=== PATIENT | female | born 1950 | race Caucasian/White ===

== ENCOUNTER 2019-06-27 09:30 | Day surgery (SDC) | payer OTHER ==
[2019-06-25 13:32] LABS: MCH 31.5 pg (26.0-34.0); MCHC 33.9 g/dL (28.0-37.0); RBC 5.7 mil/uL (4.20-5.00); WBC 9.6 thou/uL (4.0-11.0)
[2019-06-25 13:43] LABS: CALCIUM 9.2 mg/dL (8.5-10.1); CREATININE 0.8 mg/dL (0.6-1.0)
[~2019-06-27] VITALS: Ht 175.3 cm; Wt 91.6 kg
[~2019-06-27 09:30] MED LIST: ASA81BEC PO; CALCIUM + VITA1 EACH PO; ENALAPRIL MALEA20 MG PO; HYDROCHLOROTHIA25 M2 PO; LORCET 5-325 M1 EACH PO; METFORMIN HCL500 M3 PO; METFORMIN HCL500 MG PO; MULTI VITAMIN1 EACH PO; PLAVIX 75 MG TA75 MG PO; SIMVASTATIN40 MG PO; TOPROL XL100 MG PO
[2019-06-27 10:10] LABS: APTT 29.5 Seconds (24.5-32.8); PROTIME 10.4 Seconds (9.3-11.4)
[2019-06-27 10:15] VITALS: BP 170/84
--- NOTE | 2019-06-28 07:51 | EKG ---
[facility] [place] [address] ELECTROCARDIOGRAM REPORT Name: RAJESH MURRY Room #: [address] [place] [address]..#: [id number] Admission: 06/27/19 Attend Phys: Mika Doran DPM Discharge: Date of : 46 Report #: [id number] THIS REPORT FOR: cc: FAM - Family physician unknown FAM - Family physician unknown Marco Brady MD [facility] THIS REPORT FOR: //name// [facility] Test Date: 2019-06-27 Test Time: 10:14:31 Pat Name: RAJESH MURRY Department: Room: [facility] Gender: F Green House Manager: pavel : 1950 Requested By: Mika Doran Order Number: [id number] MD: Marco Brady Measurements Intervals [place] Rate: 61 P: 59 FL: 196 QRS: 108 QRSD: 112 T: QT: 455 QTc: 459 Interpretive Statements Sinus rhythm Poor R wave progression Nonspecific T abnormalities, lateral leads No previous ECG available for comparison Electronically Signed On 06-28-2019 7:49:45 CDT by Marco Brady [email or web address] <ELECTRONICALLY SIGNED> By: Marco Brady MD, [facility] 06/28/19 0749 1014 1014 Marco Brady MD, [facility] /EPI
--- NOTE | 2019-07-06 16:07 | PATH ---
[facility] [address] [place] [address] PATHOLOGY RPT PROCEDURE Name: MEGHAN HERBERT Room #: DEP [facility] M.R.#: [id number] Admission: 06/27/19 Date of : 46 Discharge: 06/27/19 Report #: [id number] Path Case #: [id number] [facility] Accession Number: [id number] No. of containers..01 Tissue . 01 Material submitted: . toe - LEFT GREAT TOE BONE AND SOFT TISSUE. Modifiers: left . 01 Clinical history: . Acute osteomyelitis, left ankle and foot; cellulitis of left toe . 02 Diagnosis: Bone and soft tissue, left great toe, debridement: - Fragments of bone associated with marked acute inflammation, consistent with acute osteomyelitis. - Fragments of skin and subcutaneous tissue showing extensive acute inflammation as well as fibrinoid degeneration. (IUV:pit 07/06/2019) QTP 07/06/2019 1218 Local . 02 Electronically signed: . Ria Rosen MD, Pathologist NPI- [id number] . 01 Gross description: . The specimen is received fresh and subsequently placed into formalin after verification of testing, labeled "Meghan Herbert, bone and soft tissue left great toe". Received is an excision of pale montesinos, flaky to sloughing skin with attached small fragments of bone measuring 4.3 x 2.3 x 1.5 cm in greatest dimensions. The surgical margin is inked. The specimen is submitted representatively in cassettes A1 through A3. (CAA; 07/05/2019) QAC/QA 07/05/2019 1042 Local . 02 Pathologist provided ICD-10: M86.172, L08.9 . 02 CPT . 135185 Specimen Comment: A courtesy copy of this report has been sent to [phone] Specimen Comment: Report sent to Performed at: [address] [id number] MD Darshan Bello MD Phone: [phone] Performed at: [address] [address] PATHOLOGY RPT PROCEDURE Name: MEGHAN HERBERT Room #: DEP [facility] M.Karsten#: [id number] Admission: 06/27/19 Date of : 46 Discharge: 06/27/19 Report #: [id number] Path Case #: [id number] [address] [facility], [place], [place] [id number] MD Ria Rosen MD Phone: [phone]
== END 2019-06-27 13:50 | disposition home or self-care (01) ==
LOC: OR 09:30 → TBA 09:36 → OR 13:42
PROVIDERS: Podiatrist Foot & Ankle Surgery
DX: M86.172 Other acute osteomyelitis, left ankle and foot (principal); M79.675 Pain in left toe(s); L08.9 Local infection of the skin and subcutaneous tissue, unspecified; I10 Essential (primary) hypertension; E78.5 Hyperlipidemia, unspecified; I25.2 Old myocardial infarction; Z98.890 Other specified postprocedural states; Z87.891 Personal history of nicotine dependence; Z86.73 Personal history of transient ischemic attack (TIA), and cerebral infarction without residual deficits; Z79.899 Other long term (current) drug therapy
CPT/HCPCS: 50010; 50101; 50386; 50951; 56526; 56527; 57091; 57178; 62110; 62850; 70005

== ENCOUNTER → 2019-07-18 | Outpatient (CLI) | payer OTHER ==
[~2019-07-18] MED LIST changes: +CIPRO500 M1 PO; +COLACE100 MG PO; +ENOXAPARIN100 MG/11 SUBQ; +PEPCID20 MG PO
== END ==
LOC: SJCVCIMAG 13:48
PROVIDERS: ATTEND Podiatrist Foot & Ankle Surgery
DX: I73.9 Peripheral vascular disease, unspecified (principal); I25.10 Atherosclerotic heart disease of native coronary artery without angina pectoris; I10 Essential (primary) hypertension; E78.00 Pure hypercholesterolemia, unspecified; E11.9 Type 2 diabetes mellitus without complications

== ENCOUNTER 2019-07-25 10:26 | Outpatient (CLI) | payer OTHER ==
[2019-07-25] VITALS (12 sets, daily range): BP systolic 128–175; BP diastolic 59–86
[~2019-07-25] VITALS: Ht 175.3 cm; Wt 90.7 kg
--- NOTE | ~2019-07-25 | HC ---
[facility] [place] [address] CONSULTATION Name: RAJESH MURRY Room #: 212-P [facility] JAYLIN Velasco#: [id number] Admission: 07/25/19 Attend Phys: Pierce Coughlin MD Discharge: Date of : 46 Report #: [id number] THIS REPORT FOR: cc: AYE - Family physician unknown FAM - Family physician unknown Juwan Doherty MD ~ CC: Pierce GRIFFITHS unknown DATE OF SERVICE: 07/26/2019 We were asked by Dr. Coughlin to see the patient. HISTORY OF PRESENT ILLNESS: The patient is a 68-year-old with lower extremity arterial occlusive disease. The patient presents with a nonhealing left great toe. The patient had a toenail removed in April by her foot doctor and this has not healed, in fact there is some evidence of infection and it has not resolved with local measures. Arteriography was done today that shows atherosclerotic plaque in the femoral bifurcation along with popliteal artery occlusive disease on the left. Reconstitution is only through a peroneal artery. PAST MEDICAL HISTORY: Significant for diabetes mellitus, hypertension, and hyperlipidemia. The patient is a longtime smoker who quit in 2001 when she had a heart problem. CURRENT MEDICATIONS: At home includes aspirin, calcium, Plavix, Vasotec, gabapentin, hydrochlorothiazide, metformin, metoprolol, vitamins, Zocor. ALLERGIES: CLAIMS TO HAVE A GI INTOLERANCE TO MORPHINE. FAMILY HISTORY: Not contributory. SOCIAL HISTORY: As mentioned, former smoker. REVIEW OF SYSTEMS: GENERAL: Denies weight change, fever. EYES: Denies vision change. Wears glasses. ENT: Denies hearing loss, sinus problems. CARDIAC: Denies angina or palpitations. RESPIRATORY: Denies cough or shortness of breath. GASTROINTESTINAL: Denies nausea, vomiting, blood in stools. GENITOURINARY: Denies urgency, frequency, blood in urine. MUSCULOSKELETAL: The patient states that she has bilateral calf claudication prior to the nonhealing. [facility] [address] [place] [address] CONSULTATION Name: RAJESH MURRY Room #: 212-[facility]#: [id number] Admission: 07/25/19 Attend Phys: Pierce Coughlin MD Discharge: Date of : 46 Report #: [id number] SKIN: Denies rash or infection other than the cellulitis related to the nonhealing of the left great toe. ENDOCRINE: Denies palpitations or tremor or goiter. NEUROLOGIC: Denies motor or sensory dysfunction. HEMATOLOGIC: Denies bleeding or anemia. PHYSICAL EXAMINATION: CONSTITUTIONAL: The patient is sitting in bed, awake, seems comfortable. VITAL SIGNS: Temperature 36.3, pulse rate 64, respiratory rate 20, blood pressure 155/80, O2 sat 95 on room air. HEENT: No scleral icterus, no arcus. NECK: No mass, no bruit. CHEST: Clear to auscultation. HEART: Rhythm regular. ABDOMEN: Soft. EXTREMITIES: I do not feel femoral, popliteal or dorsalis pedis or posterior tibial pulses. Left foot is wrapped due to the cellulitis. ASSESSMENT: The patient has limb threatening left lower extremity arterial occlusive disease. I have discussed a left femoral to peroneal artery bypass with saphenous vein. Risks and details, the options and alternatives, were reviewed. The patient understands all of this and will reflect. We have taken the liberty of obtaining a vein scan prior to surgery if the patient wishes to proceed with that approach. Thank you for the consult. By: 1523 1629 Juwan Doherty MD /nt
[~2019-07-25 10:26] MED LIST changes: -CIPRO500 M1 PO; -COLACE100 MG PO; -ENOXAPARIN100 MG/11 SUBQ; -PEPCID20 MG PO
[2019-07-25 12:04] LABS: MCH 31.5 pg (26.0-34.0); MCV 92.4 fL (80.0-100.0); RBC 5.73 mil/uL (4.20-5.00); WBC 7.7 thou/uL (4.0-11.0)
[2019-07-25 12:35] LABS: CALCIUM 8.9 mg/dL (8.5-10.1); CREATININE 0.7 mg/dL (0.6-1.0); POTASSIUM 3.7 mmol/L (3.5-5.1)
--- NOTE | 2019-07-25 17:52 | NUR ---
PT CARE ASSUMED APPROX 0720. ASSESSMENT CHARTED. PT DENIES PAIN AND SOA. VSS. ORDERED BEDREST AT THIS TIME. IVF INITIATED. RIGHT GROIN POST CATH SITE C/D/I. PT HAS SURGICAL DSG TO LEFT FOOT. DSG C/D/I. NO DISTRESS NOTED.
[2019-07-26 00:40] VITALS: BP 175/76
[2019-07-26 04:53] VITALS: BP 153/81
[2019-07-26 04:54] VITALS: BP 153/81
--- NOTE | 2019-07-26 05:49 | NUR ---
ASSUMED CARE OF PATIENT AT 1900. PATIENT IMMOBILE UNTIL 2014. RIGHT GROIN REMAINED SOFT AND PATIENT DENIED ANY PAIN. NO OOZING AT INCISION NOTED. PATIENT WAS AMBULATED TO RESTROOM. GAIT A BIT UNSTEADY DUE TO RECENT AMPUTATION OF LEFT BIG TOE. PATIENT DOES CALL APPROPRIATELY. PATIENT APPEARS TO BE PROGRESSING WELL TOWARDS GOALS.
[2019-07-26 05:58] LABS: HEMATOCRIT 51.1 % (37.0-47.0); HEMOGLOBIN 17.1 gm/dL (12.0-15.0); MCH 31.1 pg (26.0-34.0); MCHC 33.5 g/dL (28.0-37.0); MCV 92.8 fL (80.0-100.0); RBC 5.5 mil/uL (4.20-5.00); RDW 12.9 % (10.5-14.5); WBC 7.1 thou/uL (4.0-11.0)
[2019-07-26 06:46] LABS: ALBUMIN 3.2 g/dL (3.4-5.0); ANION GAP 11 mmol/L (7-16); BUN 7 mg/dL (7-18); CALCIUM 8.3 mg/dL (8.5-10.1); CHLORIDE 99 mmol/L (98-107); CO2 24 mmol/L (21-32); CREATININE 0.6 mg/dL (0.6-1.0); GLUCOSE 95 mg/dL (74-106); POTASSIUM 3.6 mmol/L (3.5-5.1); SGOT 30 U/L (15-37); SGPT 13 U/L (30-65); SODIUM 134 mmol/L (136-145); TOTAL BILIRUBIN 0.5 mg/dL (0.2-1.0); TOTAL PROTEIN 6.5 g/dL (6.4-8.2); TROPONIN-I <0.06 ng/mL (<0.06)
[2019-07-26 07:00] VITALS: BP 155/80
--- NOTE | 2019-07-26 08:31 | EKG ---
[facility] [place] [address] ELECTROCARDIOGRAM REPORT Name: RAJESH MURRY Room #: 212-P [facility]#: [id number] Admission: 07/25/19 Attend Phys: Pierce Coughlin MD Discharge: Date of : 46 Report #: [id number] THIS REPORT FOR: cc: FAM - Family physician unknown FAM - Family physician unknown Marco Brady MD [facility] THIS REPORT FOR: //name// [facility] Test Date: 2019-07-25 Test Time: 11:30:54 Pat Name: RAJESH MURRY Department: Room: Gender: Novelty Twister Operator: Veronica PENDLETON : 1950 Requested By: Pierce Coughlin Order Number: [id number] MD: Marco Brady Measurements Intervals [place] Rate: 59 P: 66 CA: 189 QRS: 102 QRSD: 110 T: -32 QT: 452 QTc: 448 Interpretive Statements Sinus rhythm with occasional premature ventricular complexes Right axis deviation Poor R wave progression Borderline T abnormalities, inferior leads Compared to ECG 06/27/2019 10:14:31 Premature ventricular complexes are now present Electronically Signed On 07-26-2019 8:29:20 CDT by Marco Brady [email or web address] <ELECTRONICALLY SIGNED> By: Marco Brady MD, [facility] 07/26/19 0829 1130 1130 Marco Brady MD, FAC /EPI
--- NOTE | 2019-07-26 08:44 | EKG ---
[facility] [place] [address] ELECTROCARDIOGRAM REPORT Name: RAJESH MURRY Room #: 212-P [facility]#: [id number] Admission: 07/25/19 Attend Phys: Pierce Coughlin MD Discharge: Date of : 46 Report #: [id number] THIS REPORT FOR: cc: FAM - Family physician unknown FAM - Family physician unknown Marco Brady MD [facility] THIS REPORT FOR: //name// [facility] Test Date: 2019-07-25 Test Time: 17:47:38 Pat Name: RAJESH MURRY Department: Room: Gender: Civil Engineer: Sarah MYERS : 1950 Requested By: Alex Rivera Order Number: [id number] MD: Marco Brady Measurements Intervals [place] Rate: 53 P: 65 OR: 205 QRS: 99 QRSD: 107 T: -45 QT: 459 QTc: 431 Interpretive Statements Sinus rhythm Right axis deviation Probable anteroseptal infarct, old Nonspecific T abnormalities, inferior leads Compared to ECG 06/27/2019 10:14:31 Ventricular premature complex(es) no longer present Electronically Signed On 07-26-2019 8:42:06 CDT by Marco Brady [email or web address] <ELECTRONICALLY SIGNED> By: Marco Brady MD, [facility] 07/26/19 0842 1747 1747 Marco Brady MD, FAC /EPI
--- NOTE | 2019-07-26 08:54 | EKG ---
[facility] [place] [address] ELECTROCARDIOGRAM REPORT Name: RAJESH MURRY Room #: 212-[facility]..#: [id number] Admission: 07/25/19 Attend Phys: Pierce Coughlin MD Discharge: Date of : 46 Report #: [id number] THIS REPORT FOR: cc: FAM - Family physician unknown FAM - Family physician unknown Marco Brady MD [facility] THIS REPORT FOR: //name// [facility] Test Date: 2019-07-26 Test Time: 07:32:17 Pat Name: RAJESH MURRY Department: Room: [facility] Gender: F Cane Flume Watchman: [facility] : 1950 Requested By: Alex Rivera Order Number: [id number] MD: Marco Brady Measurements Intervals [place] Rate: 68 P: 59 OR: 185 QRS: 105 QRSD: 111 T: -43 QT: 406 QTc: 432 Interpretive Statements Sinus rhythm Right axis deviation Anteroseptal infarct, old Borderline T abnormalities, inferior leads Compared to ECG 06/27/2019 10:14:31 No significant change was found Electronically Signed On 07-26-2019 8:51:54 CDT by Marco Brady [email or web address] <ELECTRONICALLY SIGNED> By: Marco Brady MD, [facility] 07/26/19 0851 0732 Marco Brady MD, [facility] /EPI
--- NOTE | 2019-07-26 10:03 | H ---
[facility] [place] [address] HISTORY AND PHYSICAL Name: RAJESH MURRY Room #: 212-P [facility] JAYLIN VelascoNorma#: [id number] Admission: 07/25/19 Attend Phys: Pierce Coughlin MD Discharge: Date of : 46 Report #: [id number] THIS REPORT FOR: cc: AYE - Family physician unknown FAM - Family physician unknown lAex Rivera MD [facility] ~ CC: Pierce GRIFFITHS unknown DATE OF SERVICE: 07/25/2019 HISTORY OF PRESENT ILLNESS: A 68-year-old female, I have asked to see by Dr. Coughlin. We will intervene into her iliac system. She has a history of documented coronary artery disease, has been lost to follow, I have never seen her. She had right coronary artery stents placed early in in [place]. There is a limited infarct at that time. We do not have any much in the way of those records. Longstanding hypertension, diabetes, hypercholesterolemia. Some question of some recurrent anginal type symptoms. Dr. Coughlin was going to intervene into her iliac stenosis. She has been compliant with her medications. They have been on aspirin, calcium, Plavix, enalapril, HydroDIURIL, metformin which has been held, Toprol 100, simvastatin 40. PAST MEDICAL HISTORY: Positive for coronary artery disease with stent, limited inferior infarct, peripheral vascular disease, hypertension, hypercholesterolemia, diabetes, DJD, cataract, gallbladder surgery. SOCIAL HISTORY: Former smoker, lives independently. No current alcohol. She does accompanied by her son. No illicit drug use. FAMILY HISTORY: Positive for premature coronary artery disease. ALLERGIES: MORPHINE. REVIEW OF SYSTEMS: Essentially negative except for stated as above, some progressive dyspnea, also some claudication issues. PHYSICAL EXAMINATION: GENERAL: Pleasant, alert. VITAL SIGNS: Blood pressure is 130/74, pulse 50s to 60s and regular. HEENT: Eyes reveal xanthelasmas. Pharynx is clear. NECK: Shows preserved upstrokes without JVD or bruits. LUNGS: Clear with slight prolonged stay phase. CARDIOVASCULAR: Regular rate and rhythm, S1 and S2 distant. ABDOMEN: Soft. No HSM or abdominal bruit. EXTREMITIES: Reveal diminished pulses. NEUROLOGIC: Nonfocal. [facility] [address] [place] [address] HISTORY AND PHYSICAL Name: RAJESH MURRY Room #: 212-P [facility].#: [id number] Admission: 07/25/19 Attend Phys: Pierce Coughlin MD Discharge: Date of : 46 Report #: [id number] SKIN: Warm and dry without xanthoma or ulcer, mild venous stasis. MUSCULOSKELETAL: Generalized arthritic changes. ASSESSMENT: 1. Coronary artery disease with prior inferior infarct and right coronary stents with ____ recurrent anginal equivalent. 2. Mild ischemic cardiomyopathy. 3. Peripheral vascular disease with bilateral iliac interventions, see Dr. Coughlin's dictation. 4. Hypertension. 5. Hypercholesterolemia. 6. Diabetes. RECOMMENDATIONS AND PLAN: We will proceed with cardiac catheterization to delineate the anatomy and intervention as indicated. Risks, benefits, and alternatives were discussed. Thank you for asking me to assist in the care of this patient. <ELECTRONICALLY SIGNED> By: Alex Rivera MD, FACC 07/26/19 1003 1619 1634 Alex Rivera MD, FACC /nt
[2019-07-26 11:18] VITALS: BP 155/80
[2019-07-26 15:36] VITALS: BP 166/64
--- NOTE | 2019-07-26 17:04 | NUR ---
ASSUMED CARE AT SHIFT CHANGE, ALERT, ORIENTED AND PLEASANT. DENIES ANY CP OR DISCOMFORT. US COMPLETED PER ORDERS. DISCHARGE AND MEDICATIONS INSTRUCTIONS GIVEN TO PATIENT.
--- NOTE | 2019-07-27 11:28 | CATHLAB ---
[facility] [place] [address] INVASIVE PROCEDURE REPORT Name: RAJESH MURRY Room #: DEP [facility] [place]#: [id number] Admission: 07/25/19 Attend Phys: Pierce Coughlin MD Discharge: 07/26/19 Date of : 46 Report #: [id number] THIS REPORT FOR: cc: FAM - Family physician unknown FAM - Family physician unknown Alex Rivera MD [facility] ~ APPROVED REPORT Study performed: 07/25/2019 15:09:22 Patient Details Patient Status: Out-Patient Room #: The patient is a 68 year-old female Event Personnel Alex Rivera Analytics Leader, Edith Muñoz RN, Emmy Monahan, Gary Lopez RTR Monitor Procedures Performed Left Heart CatheterizationPTCA Single Vessel RCA [id number] PCISINGLE Art Access - R femoral artery* 11745 Initial Mod Sed Same Phys/QHP Gr5y [id number] 94011 Mod Sed Same Phys/QHP Ea 095356 Hemostasis w/ Mynx Procedure Narrative The patient was brought electively to the Cardiac Catheterization Laboratory and was prepped and draped in a sterile manner. A SHEATH BRITE-TIP 6F X 11CM ([id number]) sheath was inserted into the RFA^. Coronary angiography was performed using coronary diagnostic catheters. The right coronary system was accessed and visualized with a JR4 catheter. The left coronary system was accessed and visualized with a JL4 catheter. The left ventricle was accessed and visualized with a PIGTAIL catheter. Closure device was deployed with a Fr MYNXGRIP 6/7F #[id number]. The patient tolerated the procedure well and there were no complications associated with the procedure. There was no hematoma. This was a combo case with Dr. Coughlin. Dr. Rivera used 160ml of Omnipaque 350 for his part of the exam. Intraoperative Conscious Sedation Sedation start time: 15:50 Case end Time: Fentanyl 300 mcg Versed 4.0 mg Fluoro Time: 19.70 minutes Dose: DAP 70263.20 cGycm2 3447 mGy [facility] [address] [place] [address] INVASIVE PROCEDURE REPORT Name: JUAQUIN MURRYE Albert [id number] Admission: 07/25/19 Attend Phys: Pierce Coughlin, Discharge: 07/26/19 Date of : 46 Report #: [id number] Contrast Type and Amount: Visipaque 118 ml Hemodynamics The aortic pressure is 141/67 mmHg with a mean of mmHg. The left ventricular pressure is 146/11 mmHg with a mean of mmHg. The left ventricular end diastolic pressure is 25 mmHg. PCI Technique Lesion Percutaneous coronary intervention was performed on the right coronary artery. A LAUNCHER 6FR [facility] #[id number] Guide Catheter was used to engage the ostium. A Luge Wire .014 x 182CM #[id number] Interventional Guidewire was used to cross the lesion. BALLOON DILATION A Balloon catheter Sprinter OTW 2.5 x 12 #[id number] was inserted and inflated up to 16atm for 25seconds. Additional Inflation: 18atm for 23seconds. Additional Inflation: 18atm for 22seconds. STENT DEPLOYMENT No stent was deployed in the RCA. POST STENT DEPLOYMENT BALLOON DILATION A Balloon catheter TREK NC OTW 3.5 X 15 #[id number] was inserted and inflated up to 20atm for 35seconds. Additional Inflation: 20atm for 36seconds. PCI Technique Lesion 2 Percutaneous Coronary Intervention was performed on the External iliac. PCI Technique Lesion 3 Percutaneous Coronary Intervention was performed on the mid right coronary artery. Conclusion 1 successful PTCA of a focal in-stent restenosis in the distal one third of a large dominant vessel. 99% to 0%. Redilate with a 3.5 noncompliant high-pressure balloon. #2 left main free of disease calcification is noted giving rise to LAD and circumflex. #3 LAD is mild to moderate diffusely diseased in the mid vessel at the diagonal bifurcation. And then a diffusely diseased small attenuated vessel at the apex. No indication for intervention. #4 circumflex OM proximal calcification mild disease 1 large OM widely patent. This is a non-dominant vessel. #5 normal left jugular size and inferior basilar segment is [address] [address] INVASIVE PROCEDURE REPORT Name: RAJESH MURRY Room #: [facility] [place]#: [id number] Admission: 07/25/19 Attend Phys: Pierce Coughlin, Discharge: 07/26/19 Date of : 46 Report #: [id number] hypokinetic if he overall EF is near normal in the 50% range. Recommendations and plan: Continue aggressive risk factor modification. Continue dual antiplatelet therapy which could be interrupted for peripheral bypass surgery. No new stent was placed. This was re-dilatation of a focal in-stent restenosis. Transferred to CCU stable. <ELECTRONICALLY SIGNED> By: Alex Rivera MD, FACC 07/27/19 1126 1126 1126 Alex Rivera MD, FACC /INF
--- NOTE | 2019-07-27 16:20 | HC ---
[facility] [place] [address] CONSULTATION Name: RAJESH MURRY Room #: DEP JAYLIN Valencia#: [id number] Admission: 07/25/19 Attend Phys: Pierce Coughlin MD Discharge: 07/26/19 Date of : 46 Report #: [id number] THIS REPORT FOR: cc: AYE - Family physician unknown AYE - Family physician unknown Yfn Encarnacion MD ~ CC: Pierce GRIFFITHS unknown DATE OF SERVICE: 07/26/2019 CHIEF COMPLAINT: Great toe ulceration. HISTORY OF PRESENT ILLNESS: This is a 68-year-old female patient who has a history of coronary artery disease and peripheral vascular disease, who was noted to have an ulceration of her great toe. She is status post amputation of the distal portion of the toe. The patient is followed by Podiatry and was seen by Dr. Coughlin. She underwent coronary angiography as well as an aortogram with runoffs. She was noted to have bilateral iliac stenoses and was treated with stent placement across areas of high-grade stenosis into external iliac artery and right external iliac artery. She also had critical high-grade stenosis of the left common femoral artery and multiple left SFA stenoses, left popliteal artery occlusion and occlusion of left anterior and posterior tibial arteries. These areas were not amenable to percutaneous intervention and she is being referred to Dr. Doherty for evaluation of cardiovascular surgery. I was asked to see her with regard to wound care while here in the hospital. The patient denies pain associated with the toe. States that she has been applying Betadine over the areas of Steri-Strips that were placed by her lap checker. PAST MEDICAL HISTORY: Positive for coronary artery disease, peripheral vascular disease, type 2 diabetes mellitus, hyperlipidemia, and hypertension. MEDICATIONS: Enalapril, aspirin, simvastatin, hydrochlorothiazide, Plavix, metoprolol, metformin, hydrocodone. ALLERGIES: MORPHINE. SOCIAL HISTORY: Negative for alcohol or tobacco use. FAMILY HISTORY: Noncontributory. REVIEW OF SYSTEMS: CONSTITUTIONAL: The patient denies fever, chills, or weight loss. NEUROLOGICAL: The patient denies focal weakness, numbness or tingling. EYES: The patient denies visual changes, redness, or drainage. ENT: The patient denies earache, nasal drainage or sore throat. [address] [address] CONSULTATION Name: RAJESH MURRY Room #: DEP [facility] Annie#: [id number] Admission: 07/25/19 Attend Phys: Pierce Coughlin MD Discharge: 07/26/19 Date of : 46 Report #: [id number] CARDIOVASCULAR: The patient denies chest pain, palpitation or diaphoresis. PULMONARY: The patient denies cough or shortness of breath. GASTROINTESTINAL: The patient denies nausea, vomiting, diarrhea or abdominal pain. ORTHOPEDIC: The patient does note the ulceration and subsequent surgical treatment of the left great toe. Other systems in a 14-point review of systems are negative. PHYSICAL EXAMINATION: VITAL SIGNS: At this time include temperature 36.9, pulse 61, respiratory rate 16, blood pressure 153/81. GENERAL: This is a chronically ill-appearing female patient who appears to be in no distress. HEENT: Head is normocephalic. Nose and throat clear. NECK: Supple. LUNGS: Clear. ABDOMEN: Soft. Bowel sounds present. EXTREMITIES: Lower extremities demonstrate Steri-Strips in place over a distal portion of the left great toe. It appears to have had a surgical debridement and closure, is not infected at this time, is not draining and is not tender. CLINICAL IMPRESSION: 1. Chronic ulceration of the left great toe. 2. Peripheral vascular disease, status post percutaneous intervention in the bilateral external iliac arteries. Additional evaluation with Vascular Surgery would be appropriate. 3. Hypertension. 4. Diabetes mellitus. RECOMMENDATIONS: At this point in time, the patient is scheduled for discharge for later today. I think it would be appropriate to continue with Betadine "paint" to maintain the integrity of the skin and closure of the left great toe. At this point, she is going to be discharged, but she is being followed by Podiatry here in the [facility] and I have recommended that she continue to see her lap checker. We would certainly be available and happy to contribute to her care should there be any questions or desire for additional input; however, I think at present, revascularization and topical Betadine would be appropriate care. I do appreciate being asked to see her in consultation. <ELECTRONICALLY SIGNED> By: Yfn Encarnacion MD 07/27/19 1620 1535 1558 Yfn Encarnacion MD /nt
== END 2019-07-26 17:47 | disposition home or self-care (01) ==
LOC: CATH 10:26 → 2N 17:32 → CATH 07-26 17:47
PROVIDERS: Internal Medicine Cardiovascular Disease; Nuclear Medicine Nuclear Cardiology
DX: I25.10 Atherosclerotic heart disease of native coronary artery without angina pectoris (principal); T82.855A Stenosis of coronary artery stent, initial encounter; I70.213 Atherosclerosis of native arteries of extremities with intermittent claudication, bilateral legs; I70.248 Atherosclerosis of native arteries of left leg with ulceration of other part of lower leg; L97.829 Non-pressure chronic ulcer of other part of left lower leg with unspecified severity; I70.1 Atherosclerosis of renal artery; I10 Essential (primary) hypertension; E11.9 Type 2 diabetes mellitus without complications; E78.5 Hyperlipidemia, unspecified; I25.2 Old myocardial infarction; Z98.890 Other specified postprocedural states; Z79.899 Other long term (current) drug therapy; Z90.710 Acquired absence of both cervix and uterus; Z90.49 Acquired absence of other specified parts of digestive tract; Z98.42 Cataract extraction status, left eye; Z98.41 Cataract extraction status, right eye; Z87.891 Personal history of nicotine dependence; Z01.818 Encounter for other preprocedural examination; Z86.73 Personal history of transient ischemic attack (TIA), and cerebral infarction without residual deficits; Z88.8 Allergy status to other drugs, medicaments and biological substances; Z95.1 Presence of aortocoronary bypass graft
CPT/HCPCS: 10081

== ENCOUNTER 2019-08-14 06:25 | Inpatient (IN) | payer OTHER ==
[2019-08-09 11:01] LABS: URINE BILIRUBIN NEGATIVE (Negative); URINE BLOOD TRACE (Negative); URINE CLARITY CLEAR; URINE COLOR YELLOW; URINE GLUCOSE-RANDOM* NEGATIVE (Negative); URINE KETONES NEGATIVE (Negative); URINE LEUKOCYTES-REFLEX TRACE (Negative); URINE NITRITE-REFLEX NEGATIVE (Negative); URINE PROTEIN (DIPSTICK) NEGATIVE (Negative); URINE UROBILINOGEN 0.2 E.U./dl (0.2-1.0)
[2019-08-09 11:59] LABS: ABSOLUTE NEUTROPHILS 7.5 thou/uL (1.4-8.2); EOSINOPHILS 0.6 % (0.0-3.0); HEMATOCRIT 49.5 % (37.0-47.0); HEMOGLOBIN 16.7 gm/dL (12.0-15.0); MCH 31.3 pg (26.0-34.0); MCHC 33.8 g/dL (28.0-37.0); MCV 92.7 fL (80.0-100.0); MONOCYTES 6.1 % (1.0-8.0); POLYS 76.3 % (36.0-66.0); RBC 5.34 mil/uL (4.20-5.00); RDW 12.9 % (10.5-14.5); WBC 9.9 thou/uL (4.0-11.0)
[2019-08-09 12:08] LABS: INR 1.1; PROTIME 10.8 Seconds (9.3-11.4)
[2019-08-09 12:14] LABS: ALBUMIN 3.5 g/dL (3.4-5.0); CALCIUM 9.2 mg/dL (8.5-10.1); CREATININE 0.8 mg/dL (0.6-1.0); POTASSIUM 4.8 mmol/L (3.5-5.1); TOTAL BILIRUBIN 0.5 mg/dL (0.2-1.0); TOTAL PROTEIN 6.7 g/dL (6.4-8.2)
[2019-08-09 13:11] LABS: PLATELET COUNT 211 thou/uL (150-400)
[~2019-08-14] VITALS: Ht 177.8 cm; Wt 92.2 kg
[~2019-08-14 06:25] MED LIST changes: +CIPRO500 M1 PO
[2019-08-14 06:47] VITALS: BP 112/72
[2019-08-14 16:07] VITALS: BP 82/68
[2019-08-14 16:21] VITALS: BP 99/48
[2019-08-14 16:28] VITALS: BP 95/65
[2019-08-14 19:16] VITALS: BP 113/66
[2019-08-14 20:38] VITALS: BP 95/63
[2019-08-15] VITALS (13 sets, daily range): BP systolic 84–125; BP diastolic 43–65
[2019-08-15 05:46] LABS: HEMATOCRIT 36.6 % (37.0-47.0); MCH 30.5 pg (26.0-34.0); MCHC 32.8 g/dL (28.0-37.0); MCV 92.9 fL (80.0-100.0); RBC 3.93 mil/uL (4.20-5.00); RDW 12.6 % (10.5-14.5); WBC 14.6 thou/uL (4.0-11.0)
[2019-08-15 05:58] LABS: CALCIUM 7.9 mg/dL (8.5-10.1); CREATININE 0.7 mg/dL (0.6-1.0); POTASSIUM 3.6 mmol/L (3.5-5.1)
--- NOTE | 2019-08-15 18:35 | HC ---
[facility] [place] [address] CONSULTATION Name: RAJESH MRURY Room #: 243-P ADM IN M.R.#: [id number] Admission: 08/14/19 Attend Phys: Juwan Doherty MD Discharge: Date of : 46 Report #: [id number] THIS REPORT FOR: cc: EL LAYTON Physician not on staff Yfn Encarnacion MD ~ CC: Juwan LAYTON Physician staff DATE OF SERVICE: 08/15/2019 CHIEF COMPLAINT: Dry gangrene of the left great toe. HISTORY OF PRESENT ILLNESS: This is a 68-year-old female patient with whom I am familiar from recent hospitalization. The patient had a nonhealing ulceration of the great toe significant for peripheral vascular disease. She underwent amputation of the distal portion of the toe in late 06/2019. She is being followed by Podiatry since that time. She was seen by Dr. Coughlin and underwent bilateral stent placement across high-grade stenosis of the external iliac arteries. She has now undergone left femoral to peroneal artery bypass with reversed autogenous greater saphenous vein and a left femoral endarterectomy with vein patch closure. The patient at this time states that her foot feels well. Denies any pain. She is actually quite hopeful that things are going to begin healing. PAST MEDICAL HISTORY: Positive for coronary artery disease, peripheral vascular disease as detailed above, type 2 diabetes mellitus, hyperlipidemia, hypertension, and amputation of the distal portion of the left great toe. MEDICATIONS: Includes acetaminophen, aspirin, atorvastatin, cefazolin, enalapril, famotidine, hydrochlorothiazide, hydrocodone, metoprolol, mupirocin, nicardipine, ondansetron, phenylephrine. FAMILY HISTORY: Noncontributory. SOCIAL HISTORY: Negative for alcohol or tobacco use. REVIEW OF SYSTEMS: CONSTITUTIONAL: The patient denies fever, chills, or weight loss. NEUROLOGICAL: The patient denies focal weakness, numbness or tingling. EYES: The patient denies any visual changes, redness or drainage. ENT: The patient denies earache, nasal drainage, sore throat. CARDIOVASCULAR: The patient denies chest pain or palpitations or diaphoresis. PULMONARY: The patient denies cough or shortness of breath. GASTROINTESTINAL: The patient denies nausea, vomiting, diarrhea or abdominal [address] [address] CONSULTATION Name: RAJESH MURRY Room #: [facility] ..#: [id number] Admission: 08/14/19 Attend Phys: Juwan Doherty MD Discharge: Date of : 46 Report #: [id number] pain. ORTHOPEDIC: The patient notes the ulceration on the surgical closure of her left great toe. Denies pain associated with this. GENITOURINARY: The patient denies frequency or urgency of urination. Denies dysuria. Other systems in a 14-point review of systems are negative. PHYSICAL EXAMINATION: VITAL SIGNS: At this time include temperature 98.3, pulse 64, respiratory rate 13, blood pressure 105/49. GENERAL: This is a well-developed female patient who appears to be in minimal distress. HEENT: Head normocephalic. Nose and throat clear. NECK: Supple. LUNGS: Clear. ABDOMEN: Bowel sounds present. EXTREMITIES: The lower extremities demonstrate the feet are pink, warm and dry. She has normal capillary refill. Left great toe demonstrates a surgical incision with Steri-Strips in place, a little bit of necrosis and some dry stable eschar is present. NEUROLOGIC: The patient is alert, oriented and appropriate. LABORATORY DATA: Includes sodium 135, potassium 3.6, chloride 103, CO2 of 25, BUN 14, creatinine 0.7, glucose of 84. White blood cell count is 14.6, hemoglobin is 12.0, hematocrit 36.6, platelet count 178,000. CLINICAL IMPRESSION: 1. Chronic ulceration of left great toe, status post amputation of the distal portion of the left great toe with primary closure. 2. Peripheral vascular disease, status post percutaneous intervention with bilateral external iliac arteries and status post fem-pop bypass yesterday. 3. Hypertension. 4. Diabetes mellitus. RECOMMENDATIONS: At this point in time, we will recommend topical Betadine and a simple dry gauze dressing to the left great toe. It can be left open to air alternatively if she would prefer due to discomfort with dressings in the past. We will follow carefully. I do not think there is any reason to debride at this time. The approximated portion of the distal toe appears to still remain intact. There is some eschar. I think this should be left dry stable as long as there is no infection. We will take a very conservative approach, the [facility] [address] [place] [address] CONSULTATION Name: RAJESH MURRY Room #: 243-P ADM IN M.R.#: [id number] Admission: 08/14/19 Attend Phys: Juwan Doherty MD Discharge: Date of : 46 Report #: [id number] patient is agreeable to current plan of care. I appreciate having been asked to see her in consultation. <ELECTRONICALLY SIGNED> By: Yfn Encarnacion MD 08/15/19 1835 1014 1250 Yfn Encarnacion MD /nt
[2019-08-16] VITALS (7 sets, daily range): BP systolic 111–133; BP diastolic 52–85
--- NOTE | 2019-08-16 18:06 | PATH ---
[facility] [address] [place] [address] PATHOLOGY RPT PROCEDURE Name: HERBERTMEGHAN S Room #: 212-P [facility] IN M.R.#: [id number] Admission: 08/14/19 Date of : 46 Discharge: Report #: [id number] Path Case #: [id number] L[facility] Accession Number: [id number] . 01 Material submitted: . artery - LEFT FEMORAL PLAQUE. Modifiers: left . 01 Clinical history: . Arterial occlusive disease . 02 Diagnosis: Left femoral plaque, endarterectomy: - Calcific atherosclerotic plaque material. - Focal vessel wall showing myxoid degeneration. (IUV:fur storage clerk; 08/16/2019) MBR 08/16/2019 1325 Local . 02 Electronically signed: . Ria Rosen MD, Pathologist NPI- [id number] . 01 Gross description: . The specimen is received in formalin, labeled "HerbertMeghan, left femoral plaque" and consists of multiple rubbery to calcified segments of montesinos-brown tissue measuring 3.0 x 2.2 x 1.0 cm. Truck Manager sections are submitted in A1 following decalcification. (SDY; 08/15/2019) SYU/SYU 08/15/2019 1549 Local . 02 Pathologist provided ICD-10: I70.202 . 02 CPT . 758279, 126916 Specimen Comment: A courtesy copy of this report has been sent to [phone], [phone] Specimen Comment: [phone] Specimen Comment: Report sent to / DR LAYTON Performed at: [address], [place] [id number] MD Darshan Bello MD Phone: [phone] Performed at: [address] [id number] MD Ria Rosen MD Phone: [phone]
[2019-08-17 00:46] VITALS: BP 135/71
[2019-08-17 04:20] VITALS: BP 164/82
[2019-08-17 08:23] VITALS: BP 159/80
--- NOTE | 2019-08-17 08:59 | O ---
[facility] [place] [address] OPERATIVE REPORT Name: RAJESH MURRY Room #: 212-P ADM IN M.R.#: [id number] Admission: 08/14/19 Attend Phys: Juwan Doherty MD Discharge: Date of : 46 Report #: [id number] THIS REPORT FOR: cc: EL LAYTON Physician not on staff Juwan Doherty MD ~ CC: Juwan LAYTON Physician staff DATE OF SERVICE: 08/14/2019 PREOPERATIVE DIAGNOSIS: Left lower extremity arterial occlusive disease. POSTOPERATIVE DIAGNOSIS: Left lower extremity arterial occlusive disease. OPERATION: Left femoral to peroneal artery bypass with reversed autogenous greater saphenous vein and left femoral endarterectomy with vein patch closure and intraoperative arteriograms. SURGEON: Juwan Doherty MD DRILLER PORTABLE: FLACO Sanabria ANESTHESIA: General. INDICATIONS: The patient is a 68-year-old with a nonhealing lesion of the right great toe, osteomyelitis had set in and distal first toe amputation had not healed since at least April. Arteriography showed intense amount of atherosclerotic disease in the femoral bifurcation. The distal superficial femoral artery and popliteal artery were occluded and the only reconstitution was the peroneal artery. FINDINGS AND TECHNIQUE: After general anesthesia was established, an incision was made in the left groin to expose the left common deep and superficial femoral arteries. This incision was explored medially to expose the central end of the greater saphenous vein. Another incision was made in the medial left calf to expose the superficial femoral vein below the knee. This incision was extended deep and the gastrocnemius was taken down to expose the popliteal artery. The popliteal exposure was extended distally and the soleus was taken down off of its origin on the tibia to expose the tibial arteries. The peroneal artery was found deep in this incision on the medial side of the fibula. This was found to be a relatively soft vessel and thought to be a satisfactory target for our bypass. [facility] [address] [place] [address] OPERATIVE REPORT Name: RAJESH MURRY Room #: 212-P [facility] IN [facility].#: [id number] Admission: 08/14/19 Attend Phys: Juwan Doherty MD Discharge: Date of : 46 Report #: [id number] At this point, the greater saphenous vein was harvested using interrupted incisions and 10,000 units of heparin were given. The reversed saphenous vein was sewn in end-to-side fashion to the popliteal artery. This was brought out through subcutaneous tunnel. The femoral arteries were occluded and a femoral arteriotomy was made. An endarterectomy was performed. There was intense amount of thick calcification along the posterior aspect of the common femoral artery extending into the deep and superficial femoral arteries. This was removed without creating a distal flap. Neointima was inspected and all loose debris was removed. Tacking sutures were placed at the transition zones distally. When the endarterectomy was deemed to be satisfactory, a length of greater saphenous vein was splayed open and a patch closure was made with running Prolene. Prior to finishing the closure, the vessels were backbled and then flow was reestablished. When the greater saphenous vein had been satisfactorily routed through the subcutaneous tunnel and making sure that there were no twists in the conduit, a proximal anastomosis was done with end of the graft to the side of the patch. When the anastomosis was complete, flow was reestablished. Flow was checked both with the flow probe and the Doppler and it was felt to be satisfactory. An intraoperative arteriogram was taken that showed good but slow flow through the conduit. This appeared to be chiefly related to the limited distal flow of a single tibial artery, peroneal of that. When hemostasis was satisfactory, drains were brought through separate stab wounds and placed along the subcutaneous tunnel. Protamine was given to reverse the heparin. The wounds were closed in layers with Vicryl for the subcutaneous layer and Monocryl for the skin in the groin and nylon and clips for the skin in the more distal incisions. The patient was taken to the recovery area in satisfactory condition where a good Doppler signal was audible in the distal peroneal artery. All counts were reported as correct. <ELECTRONICALLY SIGNED> By: Juwan Doherty MD 08/17/19 0859 0849 1011 Juwan Doherty MD /nt
[2019-08-17 11:49] VITALS: BP 125/57
== END 2019-08-17 12:07 | DRG 253 ==
LOC: ICU 06:25 → TBA 06:25 → PRE 09:42 → ICU 16:06 → 2N 08-16 16:28
PROVIDERS: Physician Assistant; ADMIT Surgery Vascular Surgery; ATTEND Surgery Vascular Surgery
PROC: 04UL07Z Supplement Left Femoral Artery with Autologous Tissue Substitute, Open Approach (ICD-10-PCS; principal; 2019-08-14)
PROC: 041 Lower Arteries, Bypass (ICD-10-PCS; principal; 2019-08-14)
PROC: 04CL0ZZ Extirpation of Matter from Left Femoral Artery, Open Approach (ICD-10-PCS; principal; 2019-08-14)
PROC: 06BQ0ZZ Excision of Left Saphenous Vein, Open Approach (ICD-10-PCS; principal; 2019-08-14)
DX: I70.208 Unspecified atherosclerosis of native arteries of extremities, other extremity (principal); E44.1 Mild protein-calorie malnutrition; I25.10 Atherosclerotic heart disease of native coronary artery without angina pectoris; E11.51 Type 2 diabetes mellitus with diabetic peripheral angiopathy without gangrene; E78.5 Hyperlipidemia, unspecified; L97.529 Non-pressure chronic ulcer of other part of left foot with unspecified severity; I10 Essential (primary) hypertension; E78.00 Pure hypercholesterolemia, unspecified; E11.42 Type 2 diabetes mellitus with diabetic polyneuropathy; Z20.828 Contact with and (suspected) exposure to other viral communicable diseases; Z79.899 Other long term (current) drug therapy; Z79.82 Long term (current) use of aspirin; Z89.412 Acquired absence of left great toe; Z88.6 Allergy status to analgesic agent; Z68.29 Body mass index [BMI] 29.0-29.9, adult
CPT/HCPCS: 10078; 10081; 10203; 47375; 48888; 50010; 50101; 50386; 50455; 50643; 50953; 51412; 51481; 52287; 56524; 56526; 56527; 56528; 56531; 56534; 56668; 56760; 57092; 57093; 57167; 57242; 62110; 62900

== ENCOUNTER 2019-08-17 09:33 | Inpatient (IN) | payer OTHER ==
[~2019-08-17] VITALS: Ht 175.3 cm; Wt 100.2 kg
--- NOTE | ~2019-08-17 | PLAN ---
[facility] [place] [address] REHAB UNIT PLAN OF CARE Name: RAJESH MURRY Room #: 513-P ADM IN M.R.#: [id number] Admission: 08/17/19 Attend Phys: Pierce Carrington MD Discharge: Date of : 46 Report #: [id number] THIS REPORT FOR: //name// CC: Pierce LAYTON Physician staff DATE OF SERVICE: 08/20/2019 SUBJECTIVE: The patient is seen back today in followup. She is in no distress. Last recorded temperature 98.1, pulse 80, respirations 18, blood pressure 101/51. The patient is alert. HEENT appeared to be benign. Cranial nerves are grossly intact. Facies are symmetric. Her left lower extremity dressings are in place with the medial and lateral wound VACs with drains. She is working in therapies with transfers, contact guard and gait min assist 15 feet with a front-wheeled walker. In occupational therapy, lower body dressing is dependent. ASSESSMENT: 1. Medical complexity with generalized debilitation. 2. Severe peripheral arterial disease, status post left fem-pop bypass. 3. Recent left great toe wound, status post amputation, 06/27/2019. 4. Peripheral neuropathy. 5. Coronary artery disease. 6. Hypertension. 7. Hyperlipidemia. 8. Diabetes mellitus type 2. 9. Mild protein-calorie malnutrition. PLAN: The overall plan of care is based on the preadmission screen, post-admission physician evaluation and information garnered from therapy assessments. 1. Estimated length of stay is probably 5-10 days. 2. Medical prognosis is reasonably good. 3. Anticipated interventions includes the interdisciplinary acute inpatient rehabilitation program. 4. Anticipated functional outcomes would be for the patient to become modified independent with transfers, mobility and ADLs at least at a walker level, so that she can return back to the home setting. 5. Discharge destination would be back home with her sister. 6. Expected therapy by discipline includes PT and OT 1 and 1-1/2 [place] [address] REHAB UNIT PLAN OF CARE Name: RAJESH MURRY Room #: 513-P [facility] IN [facility].#: [id number] Admission: 08/17/19 Attend Phys: Pierce Carrington MD Discharge: Date of : 46 Report #: [id number] each five days a week throughout the duration of the acute inpatient rehabilitation stay. By: 0921 1010 Pierce Carrington MD /nt
[2019-08-17 12:30] VITALS: BP 112/55
--- NOTE | 2019-08-17 13:30 | NUR ---
chart review. cm intro dcp, transition of care and team meeting. pt new to acute rehab today, bedside in for visit as well. julian reported " live alone, my sister will cm stay with me when dc home and if need hh it will have to be [facility]. have ramp into home and then 1 level for needs. [place] walker. independent, manage own medication and drive vehicle. primary care dr cam bunch."/julian. will cont following as needed for dc needs.
--- NOTE | 2019-08-17 15:58 | NUR ---
PT ARRIVED AT 1200 FROM CCU. VITALS STABLE. C/O LEFT GROIN AND LEFT BIG TOE PAIN. WOUNDVAC ON LLE REMAINS INTACT AND PATENT. EVELYN DRAINS INTACT AND PATENT. DRESSING ON LEFT FELTON AROUND EVELYN DRAIN CHANGED. DRAINAGE REMAINS SEROUSANGUINOUS. PT UP WITH MAX ASSIST OF 1-2 PIVOT TRANSFERS AND TOLERATED WELL. WBAT FOR LLE. IV ON LEFT HAND REMAINS INTACT AND PATENT. Q1H VISUAL CHECKS. CALL LIGHT WITHIN REACH. FALL PRECAUTIONS IN PLACE
[2019-08-17 19:45] VITALS: BP 111/54
--- NOTE | 2019-08-18 00:51 | NUR ---
PT ALERT AND ORIENTED X 4. WOUND VAC TO LEFT LEG C/D/I. NO DRAINAGE IN CANNISTER. LEFT GROIN AND ANKLE EVELYN DRAINS INTACT WITH SEROSANGUINOUS DRAINAGE. BP 111/54 AT HS. BP MEDS HELD. VOIDING LARGE AMTS CLEAR YELLOW URINE. PT DENIES PAIN OR DISCOMFORT. BED ALARM ON FOR SAFETY. PT CHECKED ON HOURLY ROUNDS.
[2019-08-18 06:12] LABS: HEMATOCRIT 34.7 % (37.0-47.0); HEMOGLOBIN 11.7 gm/dL (12.0-15.0); MCH 31.1 pg (26.0-34.0); MCHC 33.8 g/dL (28.0-37.0); RBC 3.77 mil/uL (4.20-5.00); RDW 12.8 % (10.5-14.5); WBC 11.1 thou/uL (4.0-11.0)
[2019-08-18 06:34] LABS: CALCIUM 8.9 mg/dL (8.5-10.1); CREATININE 0.5 mg/dL (0.6-1.0); POTASSIUM 3.6 mmol/L (3.5-5.1)
[2019-08-18 07:50] VITALS: BP 106/66
--- NOTE | 2019-08-18 14:35 | NUR ---
ASSUMED CARES AT 0700. PT AWAKE, ALERT AND ORIENTED*4. C/O LEFT GROIN AND GREAT TOE PAIN, PAIN MEDICATION ADMINISTERED NEEDED. PT C/O NAUSEA AND HAD EMESIS*1 AFTER BREAKFAST, ZOFRAN ORDER RECEIVED BUT PT REFUSED IT AT THIS TIME. PT C/O DIZZINESS, ORTHOSTATIC BP TAKEN SITTING 136/60, STANDING 73/32 AND SYMPTOMATIC (NAUSEA AND DIZZINESS). HOSPITALIST NOTIFIED AND ORDERS RECEIVED. WOUND VAC ON LLE REMAINS INTACT AND PATENT. EVELYN DRAINS ON LEFT GROIN AND LEFT ANKLE REMAIN INTACT AND PATENT, 10CC AND 40CC RESPECTIVELY EMPTIED FROM THE DRAINS. PT WALKED FROM BED TO THE DOOR WITH PHYSICAL THERAPY USING GB AND WALKER AND TOLERATED WELL, VERY HAPPY ABOUT HER ACHIEVEMENT. LEFT BIG TOE CLEANED AND PAINTED WITH BETADINE. Q1H VISUAL CHECKS. CALL LIGHT WITHIN REACH. FALL PRECAUTIONS IN PLACE
[2019-08-18 19:35] VITALS: BP 126/72
[2019-08-18 19:36] VITALS: BP 126/64
[2019-08-18 19:38] VITALS: BP 118/79
--- NOTE | 2019-08-19 00:39 | NUR ---
PT ALERT AND ORIENTED X 4. UP TO BSC WITH ASSIST X 1. WOUND VAC INTACT TO LEFT LEG. EVELYN DRAINS X 2 WITH SANGUINOUS DRAINAGE. PT DENIES PAIN OR DISCOMFORT. NO N/V. BED ALARM ON FOR SAFETY. PT APPEARS TO BE SLEEPING ON HOURLY ROUNDS.
[2019-08-19 05:36] LABS: GLYCOHEMOGLOBIN (HGB A1C) 6.1 % (4.8-5.6)
[2019-08-19 08:00] VITALS: BP 106/59; BP 82/40; BP 93/58
--- NOTE | 2019-08-19 12:23 | NUR ---
ASSUMED CARE AROUND 0700, PT A&O X 4, NO ACUTE DISTRESS NOTED. VSS, O2 ON RA. PT DENIES ANY PAIN, HOWEVER HAD EMESIS X 1 DURING PT (AFTER BREAKFAST). GIVEN PRN ZOFRAN IV WITH ADEQUATE RELIEF. WOUND VAC TO L LEG IN PLACE AND RUNNING, NO DRAINAGE NOTED. DRESSINGS C/D/I. EVELYN DRAINS TO L GROIN AND L ANKLE IN PLACE DRAINING SMALL AMOUNT OF SEROSANGUINEOUS FLUID. IV TO L HAND FLUSHES WELL. MEDS GIVEN PER ORDERS, REFUSED DAILY MIRALAX, HAD SOFT BM THIS AM. CONTINENT OF B&B AND USES BR. PT RESTING IN BED, CALL LIGHT WITHIN REACH, WILL CONTINUE TO MONITOR PER POC.
[2019-08-19 19:20] VITALS: BP 113/68
[2019-08-19 19:21] VITALS: BP 103/58
[2019-08-19 19:23] VITALS: BP 101/51
--- NOTE | 2019-08-20 03:30 | NUR ---
PATIENT ALERT AND ORIENTED X4. UP TO BSC WITH ONE ASSIST AND GAIT BELT. BS MONITORED PER ORDER WELL ORTHOSTATIC B/P. LYING 113/68; SITTING 103/58 AND STANDING 101/51 AT 1923 08/19/19. WOUND VAC OPERATING W/O DIFFICULTY. MONITORING EVELYN'S X2. DRESSINGS D/I. LEFT GREAT TOE HUSSEIN. MEDICATED X1 FOR PAIN AT TIME OF NOTE. NO EMESIS. WILL MONITOR.
--- NOTE | 2019-08-20 06:29 | NUR ---
PATIENT'S EVELYN DRAINS WITH SCANT AMOUNT - UNMEASURABLE. ALSO NO OUTPUT FROM WOUND VAC. PATIENT UP TO BSC X1 DURING THE NIGHT. REPORTED THIS AM THAT SHE RESTED VERY WELL DURING THE NIGHT.
[2019-08-20 07:20] VITALS: BP 116/60
[2019-08-20 08:20] VITALS: BP 116/60
[2019-08-20 09:37] VITALS: BP 123/57
[2019-08-20 09:38] VITALS: BP 112/61
[2019-08-20 09:39] VITALS: BP 111/73
--- NOTE | 2019-08-20 18:30 | NUR ---
ASSUMED CARE AROUND 0700. PT A&O X 4. REPORTS HAD BEST SLEEP LAST NIGHT. VSS, O2 ON RA. REASSESSMENT PER CHART. REPORTS HAD LOOSE STOOL. REFUSED MIRALAX. DENIES NAUSEA. IV ON LEFT HAND REMOVED. CHANGED IV ZOFRAN TO SL. WOUND VAC TO L LEG IN PLACE AND RUNNING DRESSINGS C/D/I. EVELYN DRAINS TO L GROIN HAD 15CC AND L ANKLE HAD 40CC SEROSANGUINEOUS FLUID. DR CLARK AND HIS PA CAME TO SEE PT THIS AM. INFORMED ASHLEY ABOUT HER MEDS. BS CHANGE TO DAILY NOW. ORTHOSTATIC B/P ORDER DISCONTINUE. CONTINENT OF B&B AND USES BR. OFFERED SUPPORTIVE CARE. REASSESSMENT PER CHART. SKIN DRY APPLIED LOTION ON BOTH FEET. LEFT GREAT TOE PAINTED WITH BETADINE. PT HAD GOOD DAY TODAY. IN GOOD SPIRIT. CALL LIGHT WITHIN REACH, WILL CONTINUE TO MONITOR PER POC. WILL GIVE REPORT TO NIGHT NURSE TO CONTINUE TO MONITOR.
[2019-08-20 19:50] VITALS: BP 147/75
--- NOTE | 2019-08-21 02:06 | NUR ---
UP TO TOILET WITH STANDBY ASSIST AND STAF MERELY MANAGING TUBING FROM PRE[employer]NA DRESSIMG SO NOT TO TRIP ON THEM. JPs ARE INTACT AND DRAINING SEROSANGUINOUS, ONE NEAR LEFT HIP, THE OTHER NEAR LEFT ANKLE IS DRAINING MORE. PAIN MED HELPFUL, SHE PLANS TO TAKE ANOTHER PRIOR TO THERAPY TODAY. PLEASANT AND RESTING WELL
[2019-08-21 08:15] VITALS: BP 97/47
--- NOTE | 2019-08-21 12:25 | NUR ---
team meeting, recommendation: stephani ( nursing, pt ) , cheri on 08/24/2019
--- NOTE | 2019-08-21 16:16 | NUR ---
ASSUMED CARES AT 0700. PT AWAKE, ALERT AND ORIENTED*4. C/O LEFT HIP PAIN, PAIN MEDICATION ADMINISTERED ORDERED. VITALS REMAIN STABLE. LEFT GROIN EVELYN DRAIN NOT HOLDING PRESSURE THIS AM, DRAIN HAD PULLED OUT MOST LIKELY PULLED DURING TRANSFERS, EVELYN DC'D BY PHYSICIAN. GAUZE WITH TRANSPARENT DRESSING PLACED. CHANGED*1 D/T SATURATION. EVELYN DRAIN ON LEFT ANKLE REMAINS INTACT AND PATENT, DRAINAGE EMPTIED IS LIGHT RED, 40CC IN 12HRS. DRESSING AROUND EVELYN CHANGED (SATURATED). WOUNDVAC DRESSING REMAINS INTACT, ABSORBING DRAINAGE NEEDED. LEFT GREAT TOE CLEANED AND PAINTED WITH BETADINE. PT UP WITH SBA, GB AND WALKER AND TOLERATED WELL. PT EXCITED REGARDING DC PLANS FOR 08/23. Q1H VISUAL CHECKS. CALL LIGHT WITHIN REACH. FALL PRECAUTIONS IN PLACE
[2019-08-21 19:50] VITALS: BP 149/55
--- NOTE | 2019-08-22 00:44 | NUR ---
PT ALERT AND ORIENTED X 4. AMB TO BR WITH WALKER AND ASSIST X 1 WITHOUT DIFFICULTY. LEFT LEG WOUND VAC INTACT. LEFT ANKLE EVELYN DRAIN WITH SEROSANGUINOUS DRAINAGE. PT C/O PAIN IN HER LEFT LEG. HYDROCODONE GIVEN ORDERED AND PT SLEEPING UPON REASSESSMENT. BED ALARM ON FOR SAFETY. PT CHECKED ON HOURLY ROUNDS.
[2019-08-22 08:00] VITALS: BP 131/76
--- NOTE | 2019-08-22 10:15 | NUR ---
ASSUSMED CARE AT 0700. PATIENT IS ALERT AND ORIENTED X4. PATIENT ARNOLD'S, PAPER CLEANER ARE EQUAL. LUNGS ARE CLEAR. ABD IS SOFT WITH BSX4. UP TO THE BATHROOM TO VOID CAITLYN COLORED URINE. WOUND VAC TO LEFT LEG INTACT. EVELYN AT BOTTOM OF LEG Draining minimal amount of sero-sang drainage. patient has dressing over left groin area that has minimal DRAINAGE. FALL AND SAFETY PROTOCOLS IN PLACE. DENIES ANY PAIN. CONTINUES TO PROGRESS TOWARDS D/C GOALS. LEFT TOE PAINTED WITH BETADINE AND IS OPEN TO AIR. UP IN BED FOR BREAKFAST. WILL CONTINUE TO MONITER.
[2019-08-22 13:57] VITALS: BP 131/76
--- NOTE | 2019-08-22 13:59 | NUR ---
All parties anticipating dc home Wednesday 08/23 morning via son's car. Dc capacity planner to fax [facility] that [facility] can accept and see the pt on Tuesday after the holiday weekend.
[2019-08-22 14:21] VITALS: BP 131/76
--- NOTE | 2019-08-22 14:21 | NUR ---
FAXED REFERRAL TO [facility] SPOKE WITH YASMIN IN INTAKE SHE RECEIVED REFERRAL AND WILL ACCEPT AT [place]. PT TO [place] WEDNESDAY 08/23.
[2019-08-22 19:00] VITALS: BP 145/58
--- NOTE | 2019-08-23 03:09 | NUR ---
PREVENA WOUND VAC INTACT WITH CONTINUOUS PRESSURE OF 125. FORMER EVELYN SITES COVERED WITH CLEAN DRY GAUZE. CALLS APPROPRIATELY FOR STANDBY ASSIST UP TO TOILET WITH STAFF CARRYING THE WOUND VAC AND HELPING KEEP TUBING UNDISTURBED. PLEASANT AND PAIN-FREE. WILL OFFER PAIN MED THIS AM TO BETTER TOLERATE THERAPIES.
[2019-08-23 08:00] VITALS: BP 94/45
[2019-08-23 15:54] LABS: BASOPHILS 0.6 % (0.0-2.0); EOSINOPHILS 0.6 % (0.0-3.0); HEMATOCRIT 31.3 % (37.0-47.0); HEMOGLOBIN 10.4 gm/dL (12.0-15.0); LYMPHOCYTES 10.6 % (24.0-44.0); MCH 31.3 pg (26.0-34.0); MCHC 33.2 g/dL (28.0-37.0); MCV 94.2 fL (80.0-100.0); MONOCYTES 8.6 % (1.0-8.0); PLATELET COUNT 262 thou/uL (150-400); POLYS 79.6 % (36.0-66.0); RBC 3.33 mil/uL (4.20-5.00); RDW 13.4 % (10.5-14.5); WBC 11.3 thou/uL (4.0-11.0)
--- NOTE | 2019-08-23 16:31 | NUR ---
PT TO DC TOMORROW [facility] PLEASE FAX DC ORDERS/SUMMARY TO AND CALL THE SPEAKER MOUNTER NURSE AT AND NOTIFY OF PT'S DISCHARGE.
[2019-08-23 16:41] VITALS: BP 131/76
[2019-08-23 17:43] LABS: HEMOGLOBIN 10.4 gm/dL (12.0-15.0); MCH 31.2 pg (26.0-34.0); MCHC 33.4 g/dL (28.0-37.0); MCV 93.2 fL (80.0-100.0); RBC 3.32 mil/uL (4.20-5.00); RDW 13.2 % (10.5-14.5); WBC 11.1 thou/uL (4.0-11.0)
[2019-08-23 17:58] LABS: APTT 27.3 Seconds (24.5-32.8); PROTIME 10.3 Seconds (9.3-11.4)
[2019-08-23 20:28] VITALS: BP 145/50
--- NOTE | 2019-08-23 21:19 | NUR ---
ASSUMED CARE OF PT AT 0700. PT IS A&OX4, BLOOD PRESSURE DECREASED THIS AM BUT WAS WNL ON RECHECK. REPORTS SIGNIFICANT PAIN TO RLE THIS AM, ORDERS OBTAINED FOR DOPPLER STUDIES. RESULTS INDICATED OCCLUSSION, PROVIDER AWARE OF RESULTS. ORDERS FOR LABS AND IMAGING OBTAINED. WOUND VAC TO LLE C/D/I. PT RESTING. IV STARTED TO RIGHT AC FOR IMAGING AND POSSIBLE MEDICATION NEEDS. FALL PRECAUTIONS IN PLACE AND NURSING WILL CONTINUE TO MONITOR.
--- NOTE | 2019-08-24 05:39 | NUR ---
PATIENT DISAPPOINTED THAT HER DISMISSAL WILL UNDOUBTEDLY BE DELAYED, AND WAS GIVEN SOME DETAILS OF OCCLUSION AND THAT IT CAN BE WELL MANAGED WITH LOVENOX SQ BID. HAS TENATIVE PLAN TO HAVE SURGERY ON THE RIGHT SIMILAR TO HER SURGERY ON THE LEFT AND SHE PLANS TO DISCUSS WITH DR CLARK AND/OR SHAN IF THIS WILL CHANGE THAT TIMELINE. OTHERWISE SHE IS UP TO BSC INSTEAD OF WALKING TO TOILET FOR THE TIME BEING. PREVENA TO WOUND VAC PUMP IS INTACT AT 125 MG CONTINUOUSLY
[2019-08-24 08:00] VITALS: BP 137/68
[2019-08-24 08:43] LABS: HEMATOCRIT 33.3 % (37.0-47.0); HEMOGLOBIN 11.2 gm/dL (12.0-15.0); MCH 31.8 pg (26.0-34.0); MCHC 33.7 g/dL (28.0-37.0); MCV 94.4 fL (80.0-100.0); RBC 3.53 mil/uL (4.20-5.00); RDW 13.6 % (10.5-14.5); WBC 7.7 thou/uL (4.0-11.0)
[2019-08-24 08:48] LABS: CALCIUM 8.9 mg/dL (8.5-10.1); CREATININE 0.6 mg/dL (0.6-1.0); POTASSIUM 3.9 mmol/L (3.5-5.1)
--- NOTE | 2019-08-24 09:58 | NUR ---
ASSUMED CARES AT 0700. PT AWAKE, ALERT AND ORIENTED*4. DENIES PAIN AT THIS TIME. VITALS REMAIN STABLE. PT REMAINS ON BEDREST R/T DVT RLE AND EMILY PE. LOVENOX ADMINISTERED ORDERED. LEFT HIP DRESSING REMAINS INTACT, WOUND VAC IS INTACT AND PATENT. LEFT AC IV REMAINS INTACT AND PATENT, SL. PIVOT TRANSFER TO BEDSIDE COMMODE NEEDED, TOLERATES WELL. PT TO TRANSFER TO CCU LATER THIS AM. Q1H VISUAL CHECKS. CALL LIGHT WITHIN REACH. FALL PRECAUTION IN PLACE
[2019-08-24] MEDS ORDERED: COLACE100 MG PO (10:57)
[2019-08-24] MEDS ORDERED: ENOXAPARIN100 MG/11 SUBQ (10:57)
[2019-08-24] MEDS ORDERED: PEPCID20 MG PO (10:57)
--- NOTE | 2019-08-24 11:38 | H ---
[facility] [place] [address] HISTORY AND PHYSICAL Name: RAJESH MURRY Room #: 513-P ADM IN M.R.#: [id number] Admission: 08/17/19 Attend Phys: Pierce Carrington MD Discharge: Date of : 46 Report #: [id number] THIS REPORT FOR: cc: EL LAYTON Physician not on staff Pierce Carrington MD ~ CC: Pierce LAYTON Physician staff DATE OF SERVICE: 08/17/2019 HISTORY AND PHYSICAL AND POST-ADMISSION PHYSICIAN EVALUATION HISTORY OF PRESENT ILLNESS: The patient is a 68-year-old female admitted for acute in-hospital inpatient rehabilitation. Please see the full admission history and physical. The patient had a left femoral to peroneal artery bypass performed with endarterectomy and patch closure on 08/14/2019. She has a prior left toe amputation. She notes that she has had very poor sensation of the bottom of her left foot, which is in part due to her diabetic peripheral neuropathy. This has improved post the bypass. She has significant functional mobility and ADL deficits and is being closely monitored regarding her wound VAC and has been admitted for acute in-hospital inpatient rehabilitation. As far as past medical history, habits, social history, please see the history and physical. ALLERGIES: No known drug allergies. MEDICATIONS: Please see the MAR. REVIEW OF SYSTEMS: No complaints of chest pain, shortness of breath or abdominal discomfort. PHYSICAL EXAMINATION: GENERAL: She is a very pleasant 68-year-old female in no obvious distress. She is alert, pleasant, oriented. VITAL SIGNS: Last recorded temperature 98, pulse 79, respirations 16, and blood pressure 125/57. HEENT: Appeared to be benign. NEUROLOGIC: Cranial nerves are grossly intact. Facies are symmetric. CHEST: Sounded clear to auscultation. CARDIOVASCULAR: Regular rate and rhythm. ABDOMEN: Bowel sounds positive, nontender. GENITOURINARY AND RECTAL: Deferred. EXTREMITIES: Functional range of motion of both upper extremities without [facility] [address] [place] [address] HISTORY AND PHYSICAL Name: RAJESH MURRY Room #: 513[facility] IN [facility]#: [id number] Admission: 08/17/19 Attend Phys: Pierce Carrington MD Discharge: Date of : 46 Report #: [id number] obvious focal weakness. DTRs are trace to 1. Lower extremities, she has the wound VAC in place, proximal left thigh and then down the left medial leg. She has the prior old left toe amputation. She does have some decreased sensation in distal lower extremities, which she notes she is able to feel much better with that left leg. She is min-to-mod assist for transfers, taking a few steps with a walker mod assist. She does have 1+ left lower extremity edema. Strength is probably a grade 3+ to 4-/5. ASSESSMENT: 1. Medical complexity with generalized debilitation. 2. Severe peripheral arterial disease with left fem-pop bypass. 3. Recent left great toe wound, status post amputation on 06/27/2019. 4. Peripheral neuropathy. 5. Coronary artery disease. 6. Hypertension. 7. Hyperlipidemia. 8. Type 2 diabetes mellitus. 9. Mild protein-calorie malnutrition. PLAN: The patient has been admitted for acute in-hospital inpatient rehabilitation. From a post-admission physician evaluation perspective, there are no relevant changes since the preadmission screening. Please see the above review of prior and current medical and functional conditions and comorbidities. Please see the patient's previous and current functional status. As far as risk of complications, the patient has multiple medical comorbidities as noted above. Initial plan of care involves the interdisciplinary acute inpatient rehabilitation program with the goal of maximizing her functional independence, so she can return back to the home setting. Functional goals would be for her to become modified independent with transfers, mobility and ADLs at least at the walker level, so that she can return back to the home setting. Prognosis is reasonably good with estimated length of stay probably 7-10 days. Potential barriers would include the patient's medical comorbidities and decreased functional status. <ELECTRONICALLY SIGNED> By: Pierce Carrington MD 08/24/19 1138 1550 1611 Pierce Carrington MD /nt
--- NOTE | 2019-08-26 10:06 | HC ---
[facility] [place] [address] CONSULTATION Name: RAJESH MURRY Room #: 513-P [facility] IN .R.#: [id number] Admission: 08/17/19 Attend Phys: Pierce Carrington MD Discharge: 08/24/19 Date of : 46 Report #: [id number] THIS REPORT FOR: cc: EL LAYTON Physician not on staff Leonard Lyons PhD ~ CC: Pierce LAYTON Physician staff DATE OF SERVICE: 08/18/2019 NEUROBEHAVIORAL STATUS EXAMINATION ATTENDING PHYSICIAN: Pierce Carrington MD CRTS: Leonard Lyons, PhD CLINICAL PRESENTATION: The patient is a 68-year-old female admitted to the [facility] for evaluation and treatment of a left femoral to peroneal artery bypass graft along with endarterectomy and patch closure on 08/14/2019. She has a prior left toe amputation. Very poor sensation in the bottom of her left foot is noted that was attributed to diabetic peripheral neuropathy. The patient presented with significant functional mobility and activities of daily living deficits and also being closely monitored regarding wound care. Her assessment on admission to the rehabilitation unit is medical complexity with generalized debilitation, severe peripheral arterial disease with left fem pop bypass, recent left great toe wound, status post amputation on 06/27/2019, peripheral neuropathy, coronary artery disease, hypertension, hyperlipidemia, type 2 diabetes mellitus and mild protein-calorie malnutrition. A complete description of her medical condition and history can be found in her medical record. Neuropsychological consultation was requested to provide assistance in the assessment of cognitive and emotional status and provide recommendations and services. Prior to this most recent medical event, she was living by herself. The patient has 3 children. She reports that her sister is planning to come live with her upon discharge. The patient is a high school graduate. 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 TECHNIQUES UTILIZED: Clinical interview, review of medical records, staff consultation and behavioral observation, mini mental status exam 2 standard version. EXAMINATION FINDINGS: The patient was very pleasant and personable during the [facility] [address] [place] [address] CONSULTATION Name: RAJESH MURRY Room #: 513-P [facility] IN M.R.#: [id number] Admission: 08/17/19 Attend Phys: Pierce Carrington MD Discharge: 08/24/19 Date of : 46 Report #: [id number] assessment. She accurately described events surrounding her admission. She reports being somewhat lightheaded and having vomited earlier prior to my interview. She describes symptoms to include difficulty with word finding in regard to conversation. She does not report problems with memory, anxiety or depression. She stated that her sleep and appetite are both good. Performance on the MMSE 2 brief version was a raw score of 13 with a T score of 36 and percentile rank of 8. She was 3/3 for initial registration, 5/5 for orientation to time, 3/[address] and 2/3 for immediate recall of 3 items after a brief time delay and distraction. Performance on the MMSE 2 standard version improved to 26/30, which is a T score of 46 and percentile rank of 34. The patient was 5/5 for serial sevens, 2/2 for naming, 1/1 for repetition, 3/3 for auditory comprehension. She could read and follow single command and write a sentence. The patient had some mild difficulty with copying a simple geometric design. Cognitive functioning appears satisfactory at this time. Subtle to mild cognitive disorder secondary to vascular disease cannot be completely ruled out. Thank you very much for allowing me to provide the consultation on this patient. <ELECTRONICALLY SIGNED> By: Leonard Lyons, PhD 08/26/19 1006 1420 1959 Leonard Lyons, PhD /nt
== END 2019-08-24 13:25 | disposition home health service (06) | DRG 947 ==
PROVIDERS: Hospitalist; Nurse Practitioner Family; Physician Assistant; ADMIT Physical Medicine & Rehabilitation; ATTEND Physical Medicine & Rehabilitation
DX: R53.81 Other malaise (principal); I26.99 Other pulmonary embolism without acute cor pulmonale; E44.1 Mild protein-calorie malnutrition; I82.431 Acute embolism and thrombosis of right popliteal vein; E11.42 Type 2 diabetes mellitus with diabetic polyneuropathy; E11.51 Type 2 diabetes mellitus with diabetic peripheral angiopathy without gangrene; I25.10 Atherosclerotic heart disease of native coronary artery without angina pectoris; I10 Essential (primary) hypertension; E78.5 Hyperlipidemia, unspecified; E78.00 Pure hypercholesterolemia, unspecified; Z89.422 Acquired absence of other left toe(s); Z68.32 Body mass index [BMI] 32.0-32.9, adult; Z88.6 Allergy status to analgesic agent; I25.2 Old myocardial infarction; Z90.49 Acquired absence of other specified parts of digestive tract; Z90.710 Acquired absence of both cervix and uterus; Z98.42 Cataract extraction status, left eye; Z98.41 Cataract extraction status, right eye; Z87.891 Personal history of nicotine dependence; Z86.73 Personal history of transient ischemic attack (TIA), and cerebral infarction without residual deficits; Z89.412 Acquired absence of left great toe
CPT/HCPCS: 10112

== ENCOUNTER 2019-08-24 13:42 | Inpatient (IN) | payer OTHER ==
[~2019-08-24] VITALS: Ht 175.3 cm; Wt 92.0 kg
[~2019-08-24 13:42] MED LIST changes: +COLACE100 MG PO; +ENOXAPARIN100 MG/11 SUBQ; +PEPCID20 MG PO
[2019-08-24 15:00] VITALS: BP 153/89
[2019-08-24 16:00] VITALS: BP 137/86; BP 154/79
--- NOTE | 2019-08-24 18:48 | NUR ---
ASSUMMED PT CARE AT APPROXIMATELY 1320. ASSESSMENT CHARTED. FALL PRECAUTIONS IN PLACE. PT DENIES HAVING CHEST PAIN. PT DENIES HAVING SOB. PT DENIES HAVING ACUTE PAIN. PT HAD IVC FILTER PLACED. BEDREST COMPLETE. VITAL SIGNS STABLE. R JUGULAR DRESSING C/D/I. NO HEMATOMA. EDUCATED PT ABOUT POC. PT STATED UNDERSTANDING AND DENIED HAVING FURTHER QUESTIONS. PT COMFORTABLE IN BED. PT DENIES HAVING FURTHER CONCERNS.
[2019-08-24 19:30] VITALS: BP 153/79
[2019-08-25] VITALS (75 sets, daily range): BP systolic 60–165; BP diastolic 29–126
[2019-08-25 05:25] LABS: ABSOLUTE NEUTROPHILS 6.6 thou/uL (1.4-8.2); BASOPHILS 0.7 % (0.0-2.0); EOSINOPHILS 1.8 % (0.0-3.0); HEMATOCRIT 34.7 % (37.0-47.0); HEMOGLOBIN 11.4 gm/dL (12.0-15.0); LYMPHOCYTES 14.8 % (24.0-44.0); MCHC 32.9 g/dL (28.0-37.0); MCV 94.3 fL (80.0-100.0); MONOCYTES 10.3 % (1.0-8.0); PLATELET COUNT 300 thou/uL (150-400); POLYS 72.4 % (36.0-66.0); RBC 3.68 mil/uL (4.20-5.00); RDW 13.6 % (10.5-14.5); WBC 9.1 thou/uL (4.0-11.0)
[2019-08-25 05:36] LABS: CALCIUM 8.7 mg/dL (8.5-10.1); CREATININE 0.7 mg/dL (0.6-1.0); MAGNESIUM 2.1 mg/dL (1.8-2.4); POTASSIUM 3.9 mmol/L (3.5-5.1)
--- NOTE | 2019-08-25 07:47 | NUR ---
ASSUME CARE 1900. PT/VITALS STABLE. INTERMITTENT INCISIONAL PAIN. PROGRESSING WELL WITH POC. ASSESSMENT CHARTED. PLAN IS CONITNUE TO TREAT WITH LOVENOX. NORMAL BREATHING NOTED. NO CHEST PAIN. WILL CONTINUE TO MONITOR AND FOLLOW WIHT POC
[2019-08-25 16:20] LABS: HEMATOCRIT 29.9 % (37.0-47.0); HEMOGLOBIN 9.9 gm/dL (12.0-15.0); MCH 31.5 pg (26.0-34.0); MCV 95.3 fL (80.0-100.0); RBC 3.14 mil/uL (4.20-5.00); WBC 11.9 thou/uL (4.0-11.0)
[2019-08-25 16:31] LABS: CALCIUM 7.7 mg/dL (8.5-10.1); CREATININE 0.9 mg/dL (0.6-1.0); POTASSIUM 3.7 mmol/L (3.5-5.1)
--- NOTE | 2019-08-25 17:58 | NUR ---
ASSESSMENT CHARTED. PT ALERT AND ORIENTED. VSS THIS AM. PT PARTICIPATED IN PT AND OT. WAS UP IN THE CHAIR MOST OF THE MORNING. WOUND VAC INTACT ON THE LEFT LEG. ARROUND 1527 PT REPORT HAVING PAIN IN THE LOWER EXTRIMITY AND LOWER BACK RATING PAIN 10/10. PT STATED THAT HE COULD NOT FEEL OR MOVE HER LEGS. WAS HYPOTENSIVE. RAPID RESPOND TEAM ACTIVATED. AND DR. CLARK NOTIFIED. NEW ORDERS NOTED. PT TRANSFERED TO ICU. REPORT GIVEN TO MEGA CRAVEN.
--- NOTE | 2019-08-25 19:24 | NUR ---
PICC PROCEDURE: RISK, BENEFITS, AND ALTERNATIVE TREATMENT DISCUSSED WITH THE PATIENT RELATED TO PICC PROCEDURE. TEACHING GIVEN RELATED TO POSSIBLE COMPLICATIONS SUCH BLEEDING, INFECTION, CLOT, OR VESSEL PERFORATION. INSTRUCTION GIVEN RELATED TO CLABSI PREVENTION WITH LITERATURE PROVIDED. PATIENT VOICES UNDERSTANDING TO THE ABOVE AND CONSENT OBTAILNED. DOUBLE LUMEN PICC PLACED TO RUE BASILIC VEIN. ONE STICK AND NO COMPLICATIONS. TRIED A TRIPLE LUMEN FIRST BUT FELT RESISTANCE. WITH HX OF CLOTS, I CHANGED QUICKLY TO A DOUBLE LUMEN 4FR. THE DOUBLE LUMEN 4 FR PASSED AND ADVANCED EASILY. DID NOT DO RIJ CATHETER DUE TO A LOT OF ECCHYMOSIS R NECK POST IVC FILTER PLACEMENT AND PATIENT WAS STRONGLY OPPOSED TO IT. PATIENT TOLERATED THE PICC DOUBLE LUMEN 4 FR PLACEMENT VERY WELL. NO BLEEDING AT THE SITE. PICC LENGTH =38CM, EXTERNAL =0CM. TIP OF PICC VERIFIED DISTAL SVC PER CHEST XRAY. CARGO AGENT NOTIFIED OKAY TO USE.
[2019-08-25 21:57] LABS: HEMATOCRIT 32.6 % (37.0-47.0); HEMOGLOBIN 10.7 gm/dL (12.0-15.0); MCH 31.3 pg (26.0-34.0); MCHC 32.8 g/dL (28.0-37.0); MCV 95.3 fL (80.0-100.0); RBC 3.43 mil/uL (4.20-5.00); RDW 14.1 % (10.5-14.5); WBC 21.2 thou/uL (4.0-11.0)
[2019-08-26] VITALS (28 sets, daily range): BP systolic 104–144; BP diastolic 58–72
[2019-08-26 04:04] LABS: ABSOLUTE NEUTROPHILS 14.1 thou/uL (1.4-8.2); BASOPHILS 0.3 % (0.0-2.0); HEMATOCRIT 31.2 % (37.0-47.0); HEMOGLOBIN 10.2 gm/dL (12.0-15.0); LYMPHOCYTES 5.5 % (24.0-44.0); MCHC 32.8 g/dL (28.0-37.0); MCV 94.4 fL (80.0-100.0); MONOCYTES 6.4 % (1.0-8.0); PLATELET COUNT 329 thou/uL (150-400); POLYS 87.8 % (36.0-66.0); RDW 13.6 % (10.5-14.5); WBC 16.1 thou/uL (4.0-11.0)
[2019-08-26 04:25] LABS: ALBUMIN 2.8 g/dL (3.4-5.0); ANION GAP 8 mmol/L (7-16); BUN 21 mg/dL (7-18); CHLORIDE 96 mmol/L (98-107); CO2 25 mmol/L (21-32); CREATININE 1.1 mg/dL (0.6-1.0); GLUCOSE 208 mg/dL (74-106); SGOT 26 U/L (15-37); SGPT 19 U/L (30-65); SODIUM 129 mmol/L (136-145); TOTAL BILIRUBIN 0.3 mg/dL (0.2-1.0); TOTAL PROTEIN 6.4 g/dL (6.4-8.2); TROPONIN-I <0.06 ng/mL (<0.06)
[2019-08-26 04:45] LABS: PROTIME 10.6 Seconds (9.3-11.4)
[2019-08-26 04:46] LABS: APTT 164.8 Seconds (24.5-32.8)
--- NOTE | 2019-08-26 06:00 | NUR ---
CTA DONE EARLIER, REPORTED RESULTS TO DR JEFFERS. HE WILL NOTIFTY DR CLARK TODAY. WILL CONT TO MONITOR
--- NOTE | 2019-08-26 06:00 | NUR ---
REMAINS ONB HEPARINB GTT PER PROTOCAL.
--- NOTE | 2019-08-26 06:00 | NUR ---
PT HAS SLEPT THRU THE NIGHT. AWAKE AND ALERT. A VERY SWEET LITTLE LADY LEFT LEG REMAINS PURPLE AND MOTTLED. BILAT PEDAL PULSES DOPPLED FEET WARM PT IS PAIN FREE NOW. WOUND VAC INTACT. VOIDED 350 CC UO THIS SHIFT LUNGS CLEAR. WILL CONT TO MONITOR.
--- NOTE | 2019-08-26 19:00 | NUR ---
progressing based on DP pulses strongly doppling and pt is pain free. pt is communicating on her cell phone and face timing with family.
--- NOTE | 2019-08-26 19:01 | NUR ---
pages placed to Dr. Wheat about potential candidate to transfer out of the icu and regarding Dr. Augustine consult.
--- NOTE | 2019-08-26 21:00 | NUR ---
texts per alfreda text placed to
[2019-08-27] VITALS (19 sets, daily range): BP systolic 112–146; BP diastolic 52–76
[2019-08-27 04:07] LABS: HEMATOCRIT 30.3 % (37.0-47.0); MCH 31.6 pg (26.0-34.0); MCHC 33.1 g/dL (28.0-37.0); MCV 95.6 fL (80.0-100.0); RBC 3.18 mil/uL (4.20-5.00); RDW 14.1 % (10.5-14.5); WBC 10.9 thou/uL (4.0-11.0)
[2019-08-27 04:15] LABS: CALCIUM 8.7 mg/dL (8.5-10.1); CREATININE 0.7 mg/dL (0.6-1.0)
[2019-08-27 04:37] LABS: POTASSIUM 3.9 mmol/L (3.5-5.1)
--- NOTE | 2019-08-27 06:00 | NUR ---
PT AWAKE AND ALERT. A VERY DELIGHTFUL LITTLE LADY. VSS SINUS RHYTHM. LUNGS CLEAR LEFT LEG INCISION INTACT WITH WOUND VAC. BILAT PEDAL PULSES DOPPLED. DENIES PAIN NOR SOA. WILL CONT TO MONITOR
--- NOTE | 2019-08-27 08:10 | EKG ---
[facility] [address] ELECTROCARDIOGRAM REPORT Name: ABBIE MURRYNIE Albert Room #: 242-P ADM IN M.R.#: [id number] Admission: 08/24/19 Attend Phys: Mihir Miller Discharge: Date of : 46 Report #: [id number] THIS REPORT FOR: cc: EL LAYTON Physician not on staff Marco Brady MD [facility] ~ THIS REPORT FOR: //name// [facility] Test Date: 2019-08-26 Test Time: 10:38:37 Pat Name: RAJESH MURRY Department: Room: 242 Gender: F Sand Temperer: : 1950 Requested By: Last Wheat Order Number: [id number] MD: Marco Brady Measurements Intervals [place] Rate: 80 P: 40 PA: 173 QRS: 75 QRSD: 101 T: 70 QT: 394 QTc: 455 Interpretive Statements Sinus rhythm Nonspecific T wave abnormality Compared to ECG 07/26/2019 07:32:17 Right-axis deviation no longer present Electronically Signed On 08-27-2019 8:09:56 CDT by Marco Brady [email or web address] <ELECTRONICALLY SIGNED> By: Marco Brady MD, [facility] 08/27/19 0809 1038 1038 Marco Brady MD, [facility] /EPI
--- NOTE | 2019-08-27 11:09 | NUR ---
SPOKE WITH DR ROWLEY ABOUT MRI ORDER, PT STATES SHE HAS NOT HAD ANY PAIN SINCE THAT ONE EPISODE TUESDAY AND IT WAS LOWER BACK PAIN, ORDER TO HOLD OFF ON MRI FOR NOW. DR ROWLEY STATED IF DR CLARK WAS OK WITH IT PT COULD DOWNGRADE TO CCU THIS AFTERNOON. PT IS DENYING PAIN THIS MORNING, ROLLED WITHOUT ASSISTANCE TO GET ON BEDPAN. HEPARIN INFUSING AND APTT THERAPEUTIC. PT DENIES PAIN.
--- NOTE | 2019-08-27 15:41 | NUR ---
PT TO TRANSFER TO ROOM 449, REPORT CALLED TO TAMMY CRAVEN
--- NOTE | 2019-08-27 15:44 | NUR ---
cm visited with pt and her son surya via phone call " well was getting ready to go home from acute rehab and got these clot, live 1.5 hr away and that is scary to go home with clots. not sure if i will need 5n rehab before go home. son surya lives about 3 miles away from me. home have ramp, wheel chair if needed. independent prior to hospital, drives, manage own medication . sister will come and stay with here if needed. [facility] is only hh out there and they have already called to set up time and had to let them know still in hospital. thanks for checking on me"/julian. will cont following as needed for dc needs.
--- NOTE | 2019-08-27 16:45 | NUR ---
pt transferred to room 449. all belongings sent with pt.
--- NOTE | 2019-08-27 18:16 | NUR ---
PT TRANSFERRED FROM ICU AROUND 1630. PT IS ALERT AND ORIENTED. NO COMPLAINTS AT THIS TIME. NO PAIN. VSSA/RA. ARRIVED ON 1L O2, DENIES SOA OR TROUBLE. WILL TURN TO RA AND MONITOR. TELE MONITOR APPLIED NSR. NO CHEST PAIN. PT BLOOD SUGARS MONITORED. DL PICC WITH HEPARIN GTT GOING WITHOUT ISSUES. OTHER LUMEN SALINE LOCKED. WOUND VAC IN PLACE ON LEFT LEG. ON AND SET TO 125, NO DRAINAGE NOTED. FALL PRECAUTIONS IN PLACE, BEDREST ORDERS. CALL LIGHT IN REACH. FAMILY MEMBER AT BEDSIDE. WILL CONTINUE TO MONITOR
--- NOTE | 2019-08-28 04:07 | NUR ---
Pt. rested quietly during the night when checked on during frequent rounds. Wound vac is in place to left leg. No c/o shortness of air. No c/o pain. Assisted to the bedpan.
[2019-08-28 07:07] VITALS: BP 143/78
[2019-08-28 07:10] LABS: HEMATOCRIT 30.7 % (37.0-47.0); HEMOGLOBIN 10.3 gm/dL (12.0-15.0); MCH 31.6 pg (26.0-34.0); MCHC 33.5 g/dL (28.0-37.0); MCV 94.4 fL (80.0-100.0); RBC 3.25 mil/uL (4.20-5.00); RDW 13.8 % (10.5-14.5); WBC 9.4 thou/uL (4.0-11.0)
--- NOTE | 2019-08-28 10:19 | NUR ---
ASSUMED CARE AT 0700. PT IS ALERT AND ORIENTED. NO COMPLAINTS THIS AM. VSSA/RA. NSR ON TELE. NO PAIN. TOLERATING DIET. BLOOD SUGAR MONITORED. PICC LINE WITHOUT COMPLICATIONS. HEPARIN GTT INFUSING. WOUND VAC IN PLACE, DRESSING C/D/I. PT/OT TO SEE PT. CALL LIGHT IN REACH, WILL CONTINUE TO MONITOR
[2019-08-28 15:44] VITALS: BP 132/81
--- NOTE | 2019-08-28 16:51 | NUR ---
PATIENT SEEN FOR REHAB CONSULT THIS DATE BY DORCAS SARABIA NP WITH DR. DURBIN. PATIENT IS AN APPROPRIATE CANDIDATE FOR ACUTE REHAB STAY. ANTICIPATE PATIENT TO ADMIT TO REHAB ON 08/29/19. CONTINUOUS CHURN BUTTERMAKER INFORMED. DIRECTOR OF EVENTS STOPPED IN TO SEE PATIENT AND GAVE PATIENT DR. DURBIN'S OFFICE NUMBER PER DORCAS'S REQUEST. PATIENT WAS HAPPY WITH CARE DURING STAY IN REHAB PRIOR TO READMIT TO [facility]. NO QUESTIONS OR CONCERNS REGARDING 5N ADMIT. CONTINUOUS CHURN BUTTERMAKER UPDATED ON PLAN. THANK YOU FOR THIS REFERRAL.
--- NOTE | 2019-08-28 16:52 | NUR ---
ANTICIPATE PT GOING BACK TO 5N TOMORROW. CONTINUES ON HEPERIN DRIP TODAY INDICATED DOESN'T FEEL SAFE RETURNING HOME WIT [facility] AT THIS TIME. [facility] CAN ACCEPT TOMORROW.
[2019-08-28 19:14] VITALS: BP 132/82
[2019-08-28 23:04] LABS: URINE BILIRUBIN NEGATIVE (Negative); URINE BLOOD NEGATIVE (Negative); URINE CLARITY CLEAR; URINE COLOR YELLOW; URINE GLUCOSE-RANDOM* NEGATIVE (Negative); URINE KETONES NEGATIVE (Negative); URINE LEUKOCYTES-REFLEX NEGATIVE (Negative); URINE NITRITE-REFLEX NEGATIVE (Negative); URINE PROTEIN (DIPSTICK) NEGATIVE (Negative); URINE UROBILINOGEN 0.2 E.U./dl (0.2-1.0)
--- NOTE | 2019-08-29 04:21 | NUR ---
Pt. rested quietly at intervals during the night when checked on during frequent rounds. Heparin infusing via right upper arm picc without dif- ficulty. Heparin gtt decreased as ordered (see poc). She offers no c/o pain or shortness of air. Wound vac patent to left leg.
[2019-08-29 07:21] VITALS: BP 149/70
[2019-08-29] MEDS ORDERED: XARELTO15 MG PO (11:43)
--- NOTE | 2019-08-29 11:59 | NUR ---
CM CALLED AND SPOKE WITH PT THIS AM. SHE INDICATED THAT SHE WANTED TO GO BACK UP TO 5N ACUTE INPATIENT REHAB ONCE MEDICALLY STABLE. [facility] CAN ACCEPT AND CARE TEAM INDICATED THAT PT IS MEDICALLY STABLE TO DC THIS DAY. PT IS AWARE AND AGREEABLE. NO OTHER CM INTERVENTION INDICATED. CASE CLOSED.
--- NOTE | 2019-08-29 19:57 | NUR ---
PATIENT REMOVED FROM HEPARIN DRIP AND DISCHARGED IN STABLE CONDITION WITH DISHCHARGE INSTRUCTIONS AND ORDERS AND ALL PERSONAL BELONGINGS TO [facility] [address] [place] [address]. REPORT GIVEN TO MERISSA MAY.
== END 2019-08-29 13:32 | DRG 252 ==
LOC: 2N 13:42 → ICU 13:42 → 2N 17:34 → ICU 08-25 16:42 → 4W 08-27 16:27
PROVIDERS: Internal Medicine; Internal Medicine Pulmonary Disease; Nurse Practitioner; ADMIT Hospitalist; ATTEND Hospitalist
PROC: 06H03DZ Insertion of Intraluminal Device into Inferior Vena Cava, Percutaneous Approach (ICD-10-PCS; principal; 2019-08-24)
DX: I82.401 Acute embolism and thrombosis of unspecified deep veins of right lower extremity (principal); N17.0 Acute kidney failure with tubular necrosis; E87.1 Hypo-osmolality and hyponatremia; E44.1 Mild protein-calorie malnutrition; I82.621 Acute embolism and thrombosis of deep veins of right upper extremity; I73.9 Peripheral vascular disease, unspecified; I95.9 Hypotension, unspecified; I10 Essential (primary) hypertension; E11.51 Type 2 diabetes mellitus with diabetic peripheral angiopathy without gangrene; I25.10 Atherosclerotic heart disease of native coronary artery without angina pectoris; E78.5 Hyperlipidemia, unspecified; D64.9 Anemia, unspecified; E11.42 Type 2 diabetes mellitus with diabetic polyneuropathy; I71.4 Abdominal aortic aneurysm, without rupture; I35.0 Nonrheumatic aortic (valve) stenosis; Z88.5 Allergy status to narcotic agent; I25.2 Old myocardial infarction; Z95.5 Presence of coronary angioplasty implant and graft; Z90.710 Acquired absence of both cervix and uterus; Z90.89 Acquired absence of other organs; Z90.49 Acquired absence of other specified parts of digestive tract; Z79.82 Long term (current) use of aspirin; Z79.84 Long term (current) use of oral hypoglycemic drugs; Z89.422 Acquired absence of other left toe(s); Z87.891 Personal history of nicotine dependence; Z95.820 Peripheral vascular angioplasty status with implants and grafts; Z68.29 Body mass index [BMI] 29.0-29.9, adult
CPT/HCPCS: 10045; 10078; 10081; 27000

== ENCOUNTER 2019-08-29 08:52 | Inpatient (IN) | payer OTHER ==
[~2019-08-29] VITALS: Ht 175.3 cm; Wt 100.2 kg
[2019-08-29] MEDS ORDERED: XARELTO15 MG PO (11:43)
[2019-08-29 13:30] VITALS: BP 138/78
[2019-08-29 19:28] VITALS: BP 142/61
[2019-08-30 06:01] LABS: HEMATOCRIT 30.9 % (37.0-47.0); HEMOGLOBIN 10.2 gm/dL (12.0-15.0); MCH 31.4 pg (26.0-34.0); RBC 3.25 mil/uL (4.20-5.00); RDW 14.8 % (10.5-14.5); WBC 8.4 thou/uL (4.0-11.0)
[2019-08-30 06:14] LABS: CALCIUM 9.3 mg/dL (8.5-10.1); CREATININE 0.7 mg/dL (0.6-1.0); POTASSIUM 3.7 mmol/L (3.5-5.1)
[2019-08-30 08:00] VITALS: BP 111/54
[2019-08-30 19:40] VITALS: BP 130/75
[2019-08-31 05:05] VITALS: BP 128/63
[2019-08-31 20:00] VITALS: BP 141/77
[2019-09-01 08:00] VITALS: BP 134/83
[2019-09-01 20:00] VITALS: BP 133/59
[2019-09-02 08:15] VITALS: BP 130/77
[2019-09-02 19:32] VITALS: BP 137/65
[2019-09-03 08:10] VITALS: BP 110/63
[2019-09-03 19:42] VITALS: BP 137/67
[2019-09-04 07:19] LABS: ABSOLUTE NEUTROPHILS 4.2 thou/uL (1.4-8.2); EOSINOPHILS 3.1 % (0.0-3.0); HEMATOCRIT 33.2 % (37.0-47.0); LYMPHOCYTES 18.1 % (24.0-44.0); MCH 31.8 pg (26.0-34.0); MCHC 33.3 g/dL (28.0-37.0); MCV 95.6 fL (80.0-100.0); MONOCYTES 9.1 % (1.0-8.0); PLATELET COUNT 277 thou/uL (150-400); POLYS 68.7 % (36.0-66.0); RBC 3.47 mil/uL (4.20-5.00); RDW 15.6 % (10.5-14.5); WBC 6.2 thou/uL (4.0-11.0)
[2019-09-04 07:28] LABS: CREATININE 0.7 mg/dL (0.6-1.0); MAGNESIUM 1.9 mg/dL (1.8-2.4); POTASSIUM 3.6 mmol/L (3.5-5.1)
[2019-09-04 09:00] VITALS: BP 129/67
--- NOTE | 2019-09-04 09:34 | H ---
[facility] [place] [address] HISTORY AND PHYSICAL Name: RAJESH MURRY Room #: 510-P ADM IN M.R.#: [id number] Admission: 08/29/19 Attend Phys: Pierce Carrington MD Discharge: Date of : 46 Report #: [id number] THIS REPORT FOR: cc: EL LAYTON Physician not on staff Pierce Carrington MD ~ CC: Pierce LAYTON Physician staff DATE OF SERVICE: 08/29/2019 HISTORY AND PHYSICAL/POST-ADMISSION PHYSICIAN EVALUATION HISTORY OF PRESENT ILLNESS: The patient has been readmitted for acute in-hospital inpatient rehabilitation. Please see the prior history and physical and discharge dictation. The patient had the onset of right foot pain while on the rehab estrella. Workup was consistent for severe peripheral arterial disease as well as a right lower extremity DVT and she underwent further assessment with diagnosis of bilateral pulmonary emboli. The patient was transferred back to acute care. She actually ended up having some problems with hypotension, was down in the ICU. She has extensive peripheral arterial disease involving the distal aorta. Left renal artery, SMA, MEET mesentery, bilateral external iliacs, common femorals distally to the superficial femoral. She has a recent left lower extremity fem-pop bypass. With her bilateral PE and her right lower extremity DVT. She underwent an IVC filter and was placed on a heparin drip. As far as prophylaxis. She also has SCDs ordered. The patient was switched to Xarelto. She has had a significant functional decline from her prior status and is now being readmitted for acute in-hospital inpatient rehabilitation. PAST MEDICAL HISTORY, SOCIAL HISTORY, HABITS: Please see the prior dictation. [place] about 1-1/2 hours from here with her sister and had been utilizing a front-wheeled walker. ALLERGIES: INCLUDE MORPHINE. MEDICATIONS: Please see the MAR. REVIEW OF SYSTEMS: No current complaints of chest pain, shortness of breath or abdominal discomfort. PHYSICAL EXAMINATION: GENERAL: She is a pleasant 68-year-old white female, somewhat overweight, in no obvious distress. VITAL SIGNS: Last recorded temperature 98.6, pulse 95, respirations 18, blood pressure 149/70. She is alert, pleasant, oriented. [address] [address] HISTORY AND PHYSICAL Name: RAJESH MURRY Room #: 510-P [facility] IN ..#: [id number] Admission: 08/29/19 Attend Phys: Pierce Carrington MD Discharge: Date of : 46 Report #: [id number] HEENT: Appeared to be benign. NEUROLOGIC: Cranial nerves are grossly intact. Facies are symmetric. She is a good historian. CHEST: Sounded clear to auscultation. CARDIOVASCULAR: Regular rate and rhythm. ABDOMEN: Bowel sounds positive, nontender. Mild obesity. GENITOURINARY AND RECTAL: Deferred. EXTREMITIES: She does have functional range of motion of both upper extremities. Strength is grade 4 to 4+/5. DTRs are trace to 1. Lower extremities, she has the left lower extremity, medial incisional areas with the vacuum dressings in place. She has the prior left large toe amputation. She can wiggle her toes. Appears to have reasonable sensation, has warm distal lower extremity with decent capillary refill. Strength is probably a grade 4-/5 to 3+/5, right lower extremity. She has decent capillary refill distally, extremity appears warm except for the distal toes, which are slightly less warm, but again with good capillary refill. Strength of that right lower extremity is probably a grade 3+ to 4-/5. No palpable cord. Transfers have been min assist. Gait has been 110 feet with a front-wheeled walker. Lower body dressing has been mod assist. ASSESSMENT: A 68-year-old female with the following problem list: 1. Medical complexity with generalized debilitation. 2. Bilateral pulmonary emboli, status post IVC filter. 3. Right lower extremity deep venous thrombosis. 4. Severe peripheral arterial disease with extensive disease as noted above. 5. Recent left lower extremity fem-pop bypass. 6. Recent episode of hypotension, off pressors. 7. Moderate aortic stenosis. 8. Leukocytosis. PLAN: The patient is admitted for acute in-hospital inpatient rehabilitation. Post-admission physician evaluation perspective, there are no relevant changes since the preadmission screening. Please see the above review of prior and current medical and functional conditions and comorbidities. Please see the patient's previous and current functional status. As far as risk of complication, she does have the multiple medical comorbidities as noted above. Measurable functional goals would be for the patient to become modified independent with transfers, mobility and ADLs and to improve as far as gait and ambulation, so that she can hopefully become modified independent at a walker level and returned back to the home setting. Prognosis is reasonably good with estimated length of stay probably at least 7-10 days. Potential barriers would include her multiple medical comorbidities and decreased functional status. The patient does meet diagnostic criteria for an acute in-hospital inpatient rehabilitation stay. She meets the medical necessity criteria. She does have the tolerance for therapies. She has appropriate discharge goals back to the home setting. [address] [address] HISTORY AND PHYSICAL Name: RAJESH MURRY Room #: 510-P ADM IN M.R.#: [id number] Admission: 08/29/19 Attend Phys: Pierce Carrington MD Discharge: Date of : 46 Report #: [id number] I am not going to be continuing SCDs on her as she has the prior DVT and now has had a filter placed and is already anticoagulated with the prior heparin drip and now was transitioned to Xarelto. The multiple sap bw consultant physicians will continue to follow while she is on rehabilitation. <ELECTRONICALLY SIGNED> By: Pierce Carrington MD 09/04/19 0934 [id number] Pierce Carrington MD /PMT
[2019-09-04] MEDS ORDERED: XARELTO15 MG PO (11:25)
[2019-09-04] MEDS ORDERED: XARELTO20 MG PO (11:25)
[2019-09-04 20:36] VITALS: BP 151/71
[2019-09-05 08:33] VITALS: BP 133/69
[2019-09-05 12:49] VITALS: BP 133/69
[2019-09-05 20:01] VITALS: BP 152/82
[2019-09-06] MEDS ORDERED: VASOTEC10 MG PO (08:20)
[2019-09-06] MEDS ORDERED: HYDROCODON-ACE1 EAC7 PO (08:20)
[2019-09-06] MEDS ORDERED: ELIQUIS5 MG PO (10:16)
[2019-09-06] MEDS ORDERED: XARELTO15 MG PO (10:30)
[2019-09-06] MEDS ORDERED: XARELTO20 MG PO (10:30)
[2019-09-06 11:13] VITALS: BP 133/69
--- NOTE | 2019-09-11 14:28 | PLAN ---
[facility] [place] [address] REHAB UNIT PLAN OF CARE Name: RAJESH MURRY Room #: 510-P [facility] IN .R.#: [id number] Admission: 08/29/19 Attend Phys: Pierce Carrington MD Discharge: 09/06/19 Date of : 46 Report #: [id number] THIS REPORT FOR: //name// CC: Pierce LAYTON Physician staff DATE OF SERVICE: 09/01/2019 PROGRESS NOTE AND OVERALL PLAN OF CARE SUBJECTIVE: The patient was seen earlier. No new problems have been noted. She has had some occasional numbness of the right leg. Left toe is being painted with Betadine. She has been working in therapies with transfers, modified independent. She is ambulating 20 feet, supervision with a 4-wheeled walker. In occupational therapy, lower body dressing is supervision, upper body dressing is supervision. She has the Prevena dressing in place and Vascular Surgery is continuing to follow. ASSESSMENT: 1. Medical complexity with generalized debilitation. 2. Severe peripheral arterial disease, status post left fem-pop bypass. 3. Recent left great toe wound, status post amputation. 4. Bilateral pulmonary emboli. 5. Right lower extremity deep venous thrombosis. 6. Left renal artery stenosis. 7. Peripheral neuropathy. 8. Coronary artery disease. 9. Hypertension. 10. Hyperlipidemia. 11. Diabetes mellitus type 2. 12. Intermittent claudication pain. PLAN: The overall plan of care is based on the preadmission screen, post-admission physician evaluation and information garnered from therapy assessments. 1. Estimated length of stay is probably at least 5-7 days, potentially longer if warranted. 2. Medical prognosis is reasonably good. 3. Anticipated interventions includes the interdisciplinary acute inpatient rehabilitation program. 4. Anticipated functional outcomes would be for the patient to become modified independent and increased gait distance and be fully independent with ADLs. 5. Discharge destination would be back to the home setting. Apparently, her sister can stay with her. 6. Expected therapy by discipline includes PT, OT and speech 1 hour per day [address] [address] REHAB UNIT PLAN OF CARE Name: RAJESH MURRY Room #: 510-P [facility] IN ..#: [id number] Admission: 08/29/19 Attend Phys: Pierce Carrington MD Discharge: 09/06/19 Date of : 46 Report #: [id number] each five days a week throughout the duration of the acute inpatient rehabilitation stay. <ELECTRONICALLY SIGNED> By: Pierce Carrington MD 09/11/19 1428 [id number] [id number] Pierce Carrington MD /nt
== END 2019-09-06 11:16 | disposition home health service (06) | DRG 947 ==
PROVIDERS: Nurse Practitioner; ADMIT Physical Medicine & Rehabilitation; ATTEND Physical Medicine & Rehabilitation
PROC: 05HY33Z Insertion of Infusion Device into Upper Vein, Percutaneous Approach (ICD-10-PCS; principal; 2019-08-29)
DX: R53.81 Other malaise (principal); I26.99 Other pulmonary embolism without acute cor pulmonale; I82.401 Acute embolism and thrombosis of unspecified deep veins of right lower extremity; E44.0 Moderate protein-calorie malnutrition; E11.51 Type 2 diabetes mellitus with diabetic peripheral angiopathy without gangrene; E11.42 Type 2 diabetes mellitus with diabetic polyneuropathy; I25.10 Atherosclerotic heart disease of native coronary artery without angina pectoris; I10 Essential (primary) hypertension; E78.5 Hyperlipidemia, unspecified; I70.1 Atherosclerosis of renal artery; E78.00 Pure hypercholesterolemia, unspecified; I35.0 Nonrheumatic aortic (valve) stenosis; D72.829 Elevated white blood cell count, unspecified; Z90.49 Acquired absence of other specified parts of digestive tract; Z98.42 Cataract extraction status, left eye; Z98.41 Cataract extraction status, right eye; I25.2 Old myocardial infarction; Z95.5 Presence of coronary angioplasty implant and graft; Z95.828 Presence of other vascular implants and grafts; Z68.32 Body mass index [BMI] 32.0-32.9, adult
CPT/HCPCS: 10112

== ENCOUNTER → 2019-10-08 | Outpatient (CLI) | payer OTHER ==
[~2019-10-08] MED LIST changes: +ELIQUIS5 MG PO; +HYDROCODON-ACE1 EAC7 PO; +VASOTEC10 MG PO; +XARELTO15 MG PO; +XARELTO20 MG PO
== END ==
LOC: HYPER 09:18
PROVIDERS: ATTEND Emergency Medicine
DX: T87.81 Dehiscence of amputation stump (principal); E11.621 Type 2 diabetes mellitus with foot ulcer; I70.245 Atherosclerosis of native arteries of left leg with ulceration of other part of foot; L97.522 Non-pressure chronic ulcer of other part of left foot with fat layer exposed; E11.36 Type 2 diabetes mellitus with diabetic cataract; E11.51 Type 2 diabetes mellitus with diabetic peripheral angiopathy without gangrene; E78.5 Hyperlipidemia, unspecified; I10 Essential (primary) hypertension; I25.2 Old myocardial infarction; M79.675 Pain in left toe(s); Z95.828 Presence of other vascular implants and grafts; Z86.711 Personal history of pulmonary embolism; Z86.73 Personal history of transient ischemic attack (TIA), and cerebral infarction without residual deficits; Z87.891 Personal history of nicotine dependence; Z90.49 Acquired absence of other specified parts of digestive tract; Z98.49 Cataract extraction status, unspecified eye; Y83.5 Amputation of limb(s) as the cause of abnormal reaction of the patient, or of later complication, without mention of misadventure at the time of the procedure

== ENCOUNTER → 2019-10-24 | Outpatient (CLI) | payer OTHER | LOC: HYPER 10:30 | PROVIDERS: ATTEND Emergency Medicine | DX: T87.81 Dehiscence of amputation stump (principal); E11.621 Type 2 diabetes mellitus with foot ulcer; I70.245 Atherosclerosis of native arteries of left leg with ulceration of other part of foot; L97.522 Non-pressure chronic ulcer of other part of left foot with fat layer exposed; E11.51 Type 2 diabetes mellitus with diabetic peripheral angiopathy without gangrene; E11.36 Type 2 diabetes mellitus with diabetic cataract; E78.5 Hyperlipidemia, unspecified; I10 Essential (primary) hypertension; I25.2 Old myocardial infarction; M79.675 Pain in left toe(s); Z87.891 Personal history of nicotine dependence; Z86.711 Personal history of pulmonary embolism; Z89.412 Acquired absence of left great toe; Z86.73 Personal history of transient ischemic attack (TIA), and cerebral infarction without residual deficits; Y83.5 Amputation of limb(s) as the cause of abnormal reaction of the patient, or of later complication, without mention of misadventure at the time of the procedure ==

== ENCOUNTER → 2019-11-13 | Outpatient (CLI) | payer OTHER | LOC: SJCVCIMAG 14:07 | PROVIDERS: ATTEND Internal Medicine Cardiovascular Disease | DX: R94.31 Abnormal electrocardiogram [ECG] [EKG] (principal); I70.201 Unspecified atherosclerosis of native arteries of extremities, right leg; I25.10 Atherosclerotic heart disease of native coronary artery without angina pectoris; E11.51 Type 2 diabetes mellitus with diabetic peripheral angiopathy without gangrene; I10 Essential (primary) hypertension; Z86.711 Personal history of pulmonary embolism; Z95.828 Presence of other vascular implants and grafts ==

== ENCOUNTER → 2019-11-13 | Outpatient (CLI) | payer OTHER | LOC: HYPER 13:03 | PROVIDERS: ATTEND Emergency Medicine | DX: T87.81 Dehiscence of amputation stump (principal); E11.621 Type 2 diabetes mellitus with foot ulcer; I70.245 Atherosclerosis of native arteries of left leg with ulceration of other part of foot; L97.522 Non-pressure chronic ulcer of other part of left foot with fat layer exposed; E11.51 Type 2 diabetes mellitus with diabetic peripheral angiopathy without gangrene; E11.36 Type 2 diabetes mellitus with diabetic cataract; E78.5 Hyperlipidemia, unspecified; I10 Essential (primary) hypertension; I25.2 Old myocardial infarction; M79.675 Pain in left toe(s); Z86.711 Personal history of pulmonary embolism; Z89.412 Acquired absence of left great toe; Z87.891 Personal history of nicotine dependence; Z86.73 Personal history of transient ischemic attack (TIA), and cerebral infarction without residual deficits; Z95.828 Presence of other vascular implants and grafts; Y83.5 Amputation of limb(s) as the cause of abnormal reaction of the patient, or of later complication, without mention of misadventure at the time of the procedure ==

== ENCOUNTER → 2019-11-27 | Outpatient (CLI) | payer OTHER | LOC: HYPER 09:35 | PROVIDERS: ATTEND Emergency Medicine | DX: T87.81 Dehiscence of amputation stump (principal); E11.621 Type 2 diabetes mellitus with foot ulcer; I70.245 Atherosclerosis of native arteries of left leg with ulceration of other part of foot; L97.522 Non-pressure chronic ulcer of other part of left foot with fat layer exposed; E11.51 Type 2 diabetes mellitus with diabetic peripheral angiopathy without gangrene; M79.675 Pain in left toe(s); E11.36 Type 2 diabetes mellitus with diabetic cataract; E78.5 Hyperlipidemia, unspecified; I10 Essential (primary) hypertension; I25.2 Old myocardial infarction; Z86.711 Personal history of pulmonary embolism; Z86.73 Personal history of transient ischemic attack (TIA), and cerebral infarction without residual deficits; Z87.01 Personal history of pneumonia (recurrent); Z87.891 Personal history of nicotine dependence; Z79.01 Long term (current) use of anticoagulants; Z79.84 Long term (current) use of oral hypoglycemic drugs; Y83.5 Amputation of limb(s) as the cause of abnormal reaction of the patient, or of later complication, without mention of misadventure at the time of the procedure ==

== ENCOUNTER → 2020-03-11 | Outpatient (CLI) | payer OTHER ==
[~2020-03-11] MED LIST changes: +LOPRESSOR50 MG PO; +ROSUVASTATIN CA20 MG PO
== END ==
LOC: SJCVCIMAG 12:17
PROVIDERS: ATTEND Internal Medicine Cardiovascular Disease
DX: I65.23 Occlusion and stenosis of bilateral carotid arteries (principal); I70.202 Unspecified atherosclerosis of native arteries of extremities, left leg; I82.411 Acute embolism and thrombosis of right femoral vein; R94.31 Abnormal electrocardiogram [ECG] [EKG]; I25.10 Atherosclerotic heart disease of native coronary artery without angina pectoris; E11.9 Type 2 diabetes mellitus without complications; I77.9 Disorder of arteries and arterioles, unspecified; I10 Essential (primary) hypertension; E78.00 Pure hypercholesterolemia, unspecified; Z95.1 Presence of aortocoronary bypass graft; Z95.828 Presence of other vascular implants and grafts; Z88.8 Allergy status to other drugs, medicaments and biological substances; Z98.890 Other specified postprocedural states; Z79.899 Other long term (current) drug therapy; Z87.891 Personal history of nicotine dependence; Z86.718 Personal history of other venous thrombosis and embolism; Z86.711 Personal history of pulmonary embolism; Z86.73 Personal history of transient ischemic attack (TIA), and cerebral infarction without residual deficits; Z82.49 Family history of ischemic heart disease and other diseases of the circulatory system

== ENCOUNTER → 2020-03-19 | Outpatient (CLI) | payer OTHER ==
[~2020-03-19] VITALS: Ht 175.3 cm; Wt 90.9 kg
[2020-03-19 13:31] VITALS: BP 130/62
== END ==
LOC: CATH 08:33
PROVIDERS: ATTEND Nuclear Medicine Nuclear Cardiology
DX: Z45.2 Encounter for adjustment and management of vascular access device (principal); I73.9 Peripheral vascular disease, unspecified; I77.9 Disorder of arteries and arterioles, unspecified; I25.10 Atherosclerotic heart disease of native coronary artery without angina pectoris; I82.401 Acute embolism and thrombosis of unspecified deep veins of right lower extremity; E11.9 Type 2 diabetes mellitus without complications; E78.00 Pure hypercholesterolemia, unspecified; Z95.828 Presence of other vascular implants and grafts; Z86.73 Personal history of transient ischemic attack (TIA), and cerebral infarction without residual deficits; I10 Essential (primary) hypertension; Z95.5 Presence of coronary angioplasty implant and graft; Z98.49 Cataract extraction status, unspecified eye; Z90.710 Acquired absence of both cervix and uterus; Z87.891 Personal history of nicotine dependence; Z86.718 Personal history of other venous thrombosis and embolism

== ENCOUNTER → 2020-09-09 | Outpatient (CLI) | payer OTHER | LOC: SJCVCIMAG 12:49 | PROVIDERS: ATTEND Nuclear Medicine Nuclear Cardiology | DX: I70.203 Unspecified atherosclerosis of native arteries of extremities, bilateral legs (principal); E78.00 Pure hypercholesterolemia, unspecified; I77.9 Disorder of arteries and arterioles, unspecified; I25.10 Atherosclerotic heart disease of native coronary artery without angina pectoris; T14.8XXD Other injury of unspecified body region, subsequent encounter; I82.401 Acute embolism and thrombosis of unspecified deep veins of right lower extremity; I10 Essential (primary) hypertension; I26.99 Other pulmonary embolism without acute cor pulmonale; E11.9 Type 2 diabetes mellitus without complications; Z87.891 Personal history of nicotine dependence; Z95.820 Peripheral vascular angioplasty status with implants and grafts; Z88.5 Allergy status to narcotic agent; X58.XXXD Exposure to other specified factors, subsequent encounter ==

== ENCOUNTER → 2020-10-15 | Outpatient (CLI) | payer OTHER | LOC: SJCVCIMAG 09:34 | PROVIDERS: ATTEND Nuclear Medicine Nuclear Cardiology | DX: I82.401 Acute embolism and thrombosis of unspecified deep veins of right lower extremity (principal); I73.9 Peripheral vascular disease, unspecified; I77.9 Disorder of arteries and arterioles, unspecified; I25.10 Atherosclerotic heart disease of native coronary artery without angina pectoris; I10 Essential (primary) hypertension; E78.00 Pure hypercholesterolemia, unspecified; E11.9 Type 2 diabetes mellitus without complications; Z86.73 Personal history of transient ischemic attack (TIA), and cerebral infarction without residual deficits; Z87.891 Personal history of nicotine dependence; Z79.899 Other long term (current) drug therapy; Z79.82 Long term (current) use of aspirin; Z88.5 Allergy status to narcotic agent; Z86.718 Personal history of other venous thrombosis and embolism ==